=== PATIENT | female | born 1970 | race Caucasian/White ===

== ENCOUNTER 2019-05-25 16:57 | Inpatient (IN) | payer OTHER ==
[~2019-05-25] VITALS: Ht 165.1 cm; Wt 110.3 kg
[2019-05-25] MEDS ORDERED: SODIUM CHLORIDE 0.9% 3,400 ML IV ONE (18:43)
[2019-05-25] MEDS ORDERED: AZITHROMYCIN 500 MG/NS 250 ML IV ONE (18:45)
[2019-05-25] MEDS ORDERED: CefTRIAXone SODIUM 2 GM in DEXTROSE 5%-WATER 50 ML IV ONE (18:45)
[2019-05-25 18:49] LABS: EOSINOPHILS % (AUTO) 0.3 % (1.0-6.0); LYMPHOCYTES # (AUTO) 2.2 K/uL (1.0-4.8); LYMPHOCYTES % (AUTO) 10.8 % (22.0-44.0); MEAN CORPUSCULAR HEMOGLOBIN 32.6 pg (26.0-34.0); MEAN CORPUSCULAR HGB CONC 31.6 G/dL (31.0-37.0); MEAN CORPUSCULAR VOLUME 103 fL (80-100); MONOCYTES # (AUTO) 1.2 K/uL (0.1-1.0); MONOCYTES % (AUTO) 6.1 % (2.0-9.0); NEUTROPHILS # (AUTO) 16.3 K/uL (1.8-7.7); NEUTROPHILS % (AUTO) 81.8 % (40.0-70.0); PLATELET COUNT (AUTO) 182 K/uL (150-450); RED BLOOD CELL COUNT(AUTO) 3.69 MIL/uL (4.00-5.20); RED CELL DISTRIBUTION WIDTH 18.8 % (11.5-14.5)
[2019-05-25] MEDS ORDERED: NOREPINEPHRINE 4 MG/D5%-WATER 250 ML IV PRN (18:52)
[2019-05-25 19:03] LABS: INR 1.6 (0.9-1.1); PROTHROMBIN TIME 16.7 SEC (9.4-11.6)
[2019-05-25 19:05] LABS: ABG A-A DIFF O2 35.5 mmHg (10-20.0); ABG BASE EXCESS -14.4 mmol/L (-2.0-3.0); ABG CARBOXYHEMOGLOBIN 0.3 % (0.0-1.5); ABG HCO3 14.8 mmol/L (22.0-26.0); ABG METHEMOGLOBIN 0.2 % (0.0-1.5); ABG OXYGEN SATURATION 96.2 % (95.0-98.0); ABG OXYHEMOGLOBIN 95.7 % (94.0-100.0); ABG PCO2 21 mmHg (35-45); ABG PH 7.348 (7.35-7.450); ABG TOTAL HEMOGLOBIN 11.8 G/dL (12.0-18.0); PO2, ARTERIAL BG 89.1 mmHg (84.0-92.0); SITE, BLOOD GAS RT RADIAL; SOURCE, BLOOD GAS ARTERIAL; TEMPERATURE, FAHRENHEIT, BG 98.6 FAHREN (96.0-98.6)
[2019-05-25 19:06] LABS: O2 DEVICE,BLOOD GAS ROOM AIR (ROOM AIR)
[2019-05-25 19:09] LABS: AMMONIA 182 umol/L (11-32); TROPONIN I < 0.02 ng/mL (0.00-0.05)
[2019-05-25 19:19] LABS: LACTIC ACID 4.7 mmol/L (0.4-2.0)
[2019-05-25 19:24] LABS: ALANINE AMINOTRANSFERASE 51 U/L (12-78); ALBUMIN 2.4 g/dL (3.4-5.0); ALKALINE PHOSPHATASE 248 U/L (46-116); ANION GAP 18 mmol/L (8-16); ASPARTATE AMINOTRANSFERASE 180 U/L (15-37); BILIRUBIN,TOTAL 7.8 mg/dL (0.1-1.0); CARBON DIOXIDE 19 mmol/L (22-29); CHLORIDE 97 mmol/L (98-107); CREATINE KINASE, TOTAL ONLY 447 U/L (26-192); CREATININE 5.94 mg/dL (0.60-1.30); GLOMERULAR FILTR. RATE CALC 7 mL/min (>60); GLUCOSE,RANDOM 98 mg/dL (70-110); SODIUM SERUM 134 mmol/L (136-145); TOTAL PROTEIN, SERUM 7.5 g/dL (6.4-8.2); UREA NITROGEN, BLOOD 84 mg/dL (7-18)
[2019-05-25 19:25] LABS: APPEARANCE,URINE TURBID (CLEAR); GLUCOSE, URINE (UA) NEGATIVE (NEGATIVE); KETONES,URINE TRACE mg/dL (NEGATIVE); LEUKOCYTE ESTERASE ,URINE MODERATE (NEGATIVE); OCCULT BLOOD,URINE NEGATIVE (NEGATIVE); PROTEIN,URINE NEGATIVE (NEGATIVE); UROBILINOGEN,URINE 0.2 mg/dL (<=1.0)
[2019-05-25] MEDS ORDERED: PIPERACILLIN/TAZO 3.375 GM/D5W 50 ML IV ONE (19:30)
[2019-05-25] MEDS ORDERED: LACTULOSE 200 GM/300 ML RECTAL SOLUTION PR ONE (19:30)
[2019-05-25 19:33] LABS: POTASSIUM 6.7 mmol/L (3.5-5.1)
[2019-05-25 19:37] LABS: PLATELET MORPHOLOGY COMMENT NORMAL
[2019-05-25 19:39] LABS: AMPHET/METH SCREEN,URINE NEGATIVE (NEGATIVE); BARBITURATE SCREEN, URINE NEGATIVE (NEGATIVE); BENZODIAZEPINES SCREEN,URINE NEGATIVE (NEGATIVE); CANNABINOID SCREEN,URINE POSITIVE (NEGATIVE); COCAINE SCREEN,URINE NEGATIVE (NEGATIVE); METHADONE SCREEN, URINE NEGATIVE (NEGATIVE); OPIATE SCREEN,URINE NEGATIVE (NEGATIVE)
[2019-05-25 19:40] LABS: PHENCYCLIDINE SCREEN,URINE NEGATIVE (NEGATIVE)
[2019-05-25 19:44] LABS: BILIRUBIN,URINE PRELIM. POSITIVE (NEGATIVE)
[2019-05-25] MEDS ORDERED: SODIUM BICARBONATE [ADULT] 8.4% 50 MEQ/50 ML SYRINGE IVP ONE (19:45)
[2019-05-25] MEDS ORDERED: ALBUTEROL SULFATE 2.5 MG/0.5 ML NEB SOLUTION NEB ONE (19:45)
[2019-05-25] MEDS ORDERED: DEXTROSE 50%-WATER 25 GM/50 ML SYRINGE IVP ONE ×2 (19:45→23:15)
[2019-05-25] MEDS ORDERED: INSULIN REGULAR, HUMAN 100 UNITS/ML IVP ONE ×2 (19:45→23:15)
[2019-05-25] MEDS ORDERED: CALCIUM GLUCONATE 100 MG/ML 10 ML IVP ONE (19:45)
[2019-05-25] MEDS ORDERED: SODIUM POLYSTYRENE SULFONATE 15 GM/60 ML SUSPENSION BOTTLE PO ONE (19:45)
[2019-05-25] MEDS ORDERED: FLUT12AE3 IH (19:52)
[2019-05-25] MEDS ORDERED: LEVO25TA9 PO (19:52)
[2019-05-25] MEDS ORDERED: ALBU8HFA IH (19:52)
[2019-05-25] MEDS ORDERED: SERT100T12 PO (19:52)
[2019-05-25] MEDS ORDERED: FURO40 PO (19:52)
[2019-05-25] MEDS ORDERED: DULO20CA30 PO (19:52)
[2019-05-25] MEDS ORDERED: MONT10TA21 PO (19:52)
[2019-05-25] MEDS ORDERED: SPIR50 PO (19:52)
[2019-05-25] MEDS ORDERED: DEXL30CA3 PO (19:52)
[2019-05-25] MEDS ORDERED: RIFAX550 PO (19:52)
[2019-05-25] MEDS ORDERED: LACT30L PO (19:52)
[2019-05-25 20:00] LABS: BACTERIA,URINE Many /HPF (None Seen); NITRATE,URINE POSITIVE (NEGATIVE); RBC,URINE 0-2 /HPF (0-2); SQUAMOUS EPITHELIAL CELL,UR Moderate /LPF (None Seen)
[2019-05-25] MEDS ORDERED: RAPID SEQUENCE KIT [RSI] 1 EACH KIT ONE (20:10)
[2019-05-25] MEDS ORDERED: SUCCINYLCHOLINE CHLORIDE 20 MG/ML 10 ML VIAL ONE (20:10)
[2019-05-25] MEDS ORDERED: PROPOFOL 1000 MG/ISO-OSM 100 ML IV PRN (20:31)
[2019-05-25] MEDS ORDERED: FentaNYL CITRATE PF 500 MCG in DEXTROSE 5%-WATER 90 ML IV PRN (20:31)
[2019-05-25] MEDS ORDERED: VECURONIUM BROMIDE 10 MG/VIAL IVP ONE (20:45)
[2019-05-25] MEDS ORDERED: ETOMIDATE 2 MG/ML 10 ML VIAL IVP ONE (20:45)
[2019-05-25] MEDS ORDERED: LACTULOSE 20 GM/30 ML SOLUTION UDCUP NG ONE (20:45)
[2019-05-25] MEDS ORDERED: PANTOPRAZOLE SODIUM 80 MG in SODIUM CHLORIDE 0.9% 100 ML IV SCH (21:15)
[2019-05-25] MEDS ORDERED: PANTOPRAZOLE SODIUM 40 MG/VIAL IVP ONE (21:15)
[2019-05-25] MEDS ORDERED: OCTREOTIDE ACETATE 500 MCG in DEXTROSE 5%-WATER 97.5 ML IV SCH (21:30)
[2019-05-25] MEDS ORDERED: OCTREOTIDE ACETATE 100 MCG/ML VIAL IVP ONE (21:30)
[2019-05-25 21:34] LABS: ABG A-A DIFF O2 109.7 mmHg (10-20.0); ABG BASE EXCESS -13.4 mmol/L (-2.0-3.0); ABG CARBOXYHEMOGLOBIN 0.2 % (0.0-1.5); ABG HCO3 14.4 mmol/L (22.0-26.0); ABG METHEMOGLOBIN 0.4 % (0.0-1.5); ABG OXYGEN CONTENT 17.2 mL/dL (15.0-23.0); ABG OXYGEN SATURATION 97.9 % (95.0-98.0); ABG OXYHEMOGLOBIN 97.3 % (94.0-100.0); ABG PCO2 43 mmHg (35-45); ABG TOTAL HEMOGLOBIN 12.4 G/dL (12.0-18.0); PO2, ARTERIAL BG 128.1 mmHg (84.0-92.0); SOURCE, BLOOD GAS ARTERIAL
[2019-05-25 21:36] LABS: ABG PH 7.167 (7.35-7.450); O2 DEVICE,BLOOD GAS VENTILATOR (ROOM AIR); PEEP,BG 5 cm H2O; SITE, BLOOD GAS RT RADIAL; VT, ABG 500 ml
[2019-05-25] MEDS ORDERED: 0.9% SODIUM CHLORIDE 5 ML NEB SOLUTION NEB ONE (21:39)
[2019-05-25 22:19] LABS: SALICYLATE < 2.8 mg/dL (2.8-20.0)
[2019-05-25 22:26] LABS: CALCIUM, TOTAL 9.3 mg/dL (8.8-10.5); CARBON DIOXIDE 18 mmol/L (22-29); CHLORIDE 102 mmol/L (98-107); CREATININE 5.69 mg/dL (0.60-1.30); GLUCOSE,RANDOM 138 mg/dL (70-110); SODIUM SERUM 138 mmol/L (136-145); UREA NITROGEN, BLOOD 83 mg/dL (7-18)
[2019-05-25 22:32] LABS: ANION GAP 18 mmol/L (8-16); GLOMERULAR FILTR. RATE CALC 8 mL/min (>60); PHOSPHORUS 7.5 mg/dL (2.5-4.9)
[2019-05-25 22:48] LABS: ACETAMINOPHEN < 2 mcg/mL (10-30)
[2019-05-25] MEDS ORDERED: NOREPINEPHRINE 4 MG/D5%-WATER 250 ML IV STA (22:51)
[2019-05-25] MEDS ORDERED: SODIUM CHLORIDE 0.9% 1,000 ML IV ONE (23:15)
[2019-05-26] MEDS ORDERED: 0.9% SODIUM CHLORIDE 10 ML SYRINGE IVP PRN (00:15)
[2019-05-26] MEDS ORDERED: ONDANSETRON HCL 4 MG/2 ML VIAL IVP PRN (00:15)
[2019-05-26] MEDS ORDERED: ACETAMINOPHEN 325 MG TABLET PO PRN (00:15)
[2019-05-26 01:08] LABS: GLUCOSE,POINT OF CARE 124 MG/DL (70-110)
[2019-05-26 02:05] LABS: HEMATOCRIT 36.8 % (36-46); HEMOGLOBIN 11.3 g/dL (12.0-16.0)
[2019-05-26] MEDS: PHENYLEPHRINE 200 MG/D5%-WATER 250 ML IV PRN (03:46)
[2019-05-26] MEDS ORDERED: PANTOPRAZOLE SODIUM 80 MG in SODIUM CHLORIDE 0.9% 100 ML IV SCH (06:30)
[2019-05-26] MEDS ORDERED: OCTREOTIDE ACETATE 500 MCG in DEXTROSE 5%-WATER 97.5 ML IV SCH (06:30)
[2019-05-26] MEDS ORDERED: SODIUM CHLORIDE 0.9% 1,000 ML IV ONE (06:45)
[2019-05-26 07:00] LABS: HEMATOCRIT 35.3 % (36-46); HEMOGLOBIN 10.8 g/dL (12.0-16.0); MEAN CORPUSCULAR HEMOGLOBIN 32.9 pg (26.0-34.0); MEAN CORPUSCULAR HGB CONC 30.7 G/dL (31.0-37.0); MEAN CORPUSCULAR VOLUME 107 fL (80-100); PLATELET COUNT (AUTO) 224 K/uL (150-450); RED BLOOD CELL COUNT(AUTO) 3.29 MIL/uL (4.00-5.20); RED CELL DISTRIBUTION WIDTH 19.3 % (11.5-14.5)
[2019-05-26 07:13] LABS: ALBUMIN 1.9 g/dL (3.4-5.0); BILIRUBIN,TOTAL 5.7 mg/dL (0.1-1.0); CALCIUM, TOTAL 9.2 mg/dL (8.8-10.5); CREATININE 5.62 mg/dL (0.60-1.30); TOTAL PROTEIN, SERUM 6.2 g/dL (6.4-8.2)
[2019-05-26 07:14] LABS: POTASSIUM 6.3 mmol/L (3.5-5.1)
[2019-05-26 07:16] LABS: ABG A-A DIFF O2 98.2 mmHg (10-20.0); ABG BASE EXCESS -18.7 mmol/L (-2.0-3.0); ABG CARBOXYHEMOGLOBIN 0.1 % (0.0-1.5); ABG HCO3 11.1 mmol/L (22.0-26.0); ABG METHEMOGLOBIN 0.4 % (0.0-1.5); ABG OXYGEN CONTENT 15.7 mL/dL (15.0-23.0); ABG OXYGEN SATURATION 98.2 % (95.0-98.0); ABG OXYHEMOGLOBIN 97.7 % (94.0-100.0); ABG PCO2 38 mmHg (35-45); ABG TOTAL HEMOGLOBIN 11.2 G/dL (12.0-18.0); PO2, ARTERIAL BG 143.2 mmHg (84.0-92.0); SOURCE, BLOOD GAS ARTERIAL; TEMPERATURE, FAHRENHEIT, BG 98.6 FAHREN (96.0-98.6)
[2019-05-26 07:17] LABS: ABG PH 7.085 (7.35-7.450); O2 DEVICE,BLOOD GAS VENTILATOR (ROOM AIR); SITE, BLOOD GAS RT RADIAL; VT, ABG 500 ml
[2019-05-26 07:18] LABS: PEEP,BG 5 cm H2O
[2019-05-26 07:33] LABS: BAND NEUTROPHILS % (MANUAL) 29 % (0-5); LYMPHOCYTES % (MANUAL) 17 % (22-44); MONOCYTES % (MANUAL) 3 % (2-9); SEGMENTED NEUTROPHILS % 51 % (40-70)
[2019-05-26] MEDS ORDERED: SODIUM CHL IV ONE (07:45)
[2019-05-26] MEDS ORDERED: SODIUM BICARBONATE [ADULT] 8.4% 50 MEQ/50 ML SYRINGE IVP ONE (07:45)
[2019-05-26] MEDS ORDERED: DEXTROSE IV ONE (07:45)
[2019-05-26] MEDS ORDERED: SODIUM BICARBONATE IV ONE (07:45)
[2019-05-26] MEDS: VASOPRESSIN 40 UNITS in DEXTROSE 5%-WATER 98 ML IV PRN ×2 (09:09→19:51)
[2019-05-26 09:50] LABS: ABG A-A DIFF O2 113.3 mmHg (10-20.0); ABG BASE EXCESS -9.8 mmol/L (-2.0-3.0); ABG CARBOXYHEMOGLOBIN 0.3 % (0.0-1.5); ABG HCO3 17.3 mmol/L (22.0-26.0); ABG METHEMOGLOBIN 0.3 % (0.0-1.5); ABG OXYGEN CONTENT 15.1 mL/dL (15.0-23.0); ABG OXYGEN SATURATION 98.5 % (95.0-98.0); ABG OXYHEMOGLOBIN 97.9 % (94.0-100.0); ABG PCO2 34 mmHg (35-45); ABG PH 7.301 (7.35-7.450); ABG TOTAL HEMOGLOBIN 10.8 G/dL (12.0-18.0); PO2, ARTERIAL BG 132.3 mmHg (84.0-92.0); SOURCE, BLOOD GAS ARTERIAL; TEMPERATURE, FAHRENHEIT, BG 98.6 FAHREN (96.0-98.6)
[2019-05-26 09:54] LABS: O2 DEVICE,BLOOD GAS VENTILATOR (ROOM AIR); PEEP,BG 5 cm H2O; SITE, BLOOD GAS ART LINE; VT, ABG 500 ml
[2019-05-26 11:14] LABS: HEMATOCRIT 28.6 % (36-46); MEAN CORPUSCULAR HEMOGLOBIN 33.5 pg (26.0-34.0); MEAN CORPUSCULAR HGB CONC 31.4 G/dL (31.0-37.0); MEAN CORPUSCULAR VOLUME 107 fL (80-100); PLATELET COUNT (AUTO) 209 K/uL (150-450); RED BLOOD CELL COUNT(AUTO) 2.69 MIL/uL (4.00-5.20); RED CELL DISTRIBUTION WIDTH 18.8 % (11.5-14.5)
[2019-05-26 11:24] LABS: CALCIUM, TOTAL 8.1 mg/dL (8.8-10.5); CREATININE 5.3 mg/dL (0.60-1.30); POTASSIUM 5.7 mmol/L (3.5-5.1)
[2019-05-26 11:30] LABS: ALBUMIN 1.5 g/dL (3.4-5.0); BILIRUBIN,TOTAL 4.9 mg/dL (0.1-1.0)
[2019-05-26 11:41] LABS: BAND NEUTROPHILS % (MANUAL) 24 % (0-5); LYMPHOCYTES % (MANUAL) 27 % (22-44); MONOCYTES % (MANUAL) 2 % (2-9); SEGMENTED NEUTROPHILS % 47 % (40-70)
[2019-05-26 11:50] VITALS: BP 103/33
[2019-05-26 12:00] VITALS: BP_SYST 100; BP_SYST 97; BP_DIAS 30; BP_DIAS 32
[2019-05-26 12:15] VITALS: BP 103/37
[2019-05-26] MEDS ORDERED: FentaNYL CITRATE-PF 100 MCG/2 ML VIAL ONE (12:31)
[2019-05-26 12:45] LABS: INR 1.7 (0.9-1.1); PROTHROMBIN TIME 17.1 SEC (9.4-11.6)
[2019-05-26] MEDS ORDERED: NXSTAGE RFP K0 IRRIG PRN (13:15)
[2019-05-26] MEDS ORDERED: SODIUM BICARBONATE IRRIG PRN (13:15)
[2019-05-26] MEDS ORDERED: [UNRECOGNIZED DRUG - OTHER] IRRIG PRN (13:15)
[2019-05-26] MEDS ORDERED: POTASSIUM CHLORIDE IRRIG PRN (13:15)
[2019-05-26] MEDS ORDERED: NOREPINEPHRINE 4 MG/D5%-WATER 250 ML IV ONE (13:33)
[2019-05-26 14:00] VITALS: BP 105/31
[2019-05-26] MEDS: PANTOPRAZOLE SODIUM 80 MG in SODIUM CHLORIDE 0.9% 100 ML IV SCH (15:08)
[2019-05-26] MEDS: OCTREOTIDE ACETATE 500 MCG in DEXTROSE 5%-WATER 97.5 ML IV SCH (15:09)
[2019-05-26 16:00] VITALS: BP 111/34
[2019-05-26] MEDS: FentaNYL CITRATE-PF 100 MCG/2 ML VIAL IVP SCH ×3 (16:00→20:30)
[2019-05-26] MEDS ORDERED: PROPOFOL 1000 MG/ISO-OSM 100 ML IV ONE (16:55)
[2019-05-26] MEDS ORDERED: *CLINICAL-LEVOFLOXACIN IVPB DOSING CLINICAL ONE (17:30)
[2019-05-26] MEDS: NOREPINEPHRINE 4 MG/D5%-WATER 250 ML IV PRN ×2 (17:33→20:45)
[2019-05-26] MEDS ORDERED: SODIUM CHLORIDE 0.9% 250 ML IV ONE (17:59)
[2019-05-26] MEDS ORDERED: LEVOFLOXACIN 750 MG/D5% WATER 150 ML IV ONE (18:00)
[2019-05-26] MEDS ORDERED: PIPERACILLIN SODIUM/TAZOBACTAM 4.5 GM in DEXTROSE 5%-WATER 100 ML IV SCH (19:00)
[2019-05-26 20:00] VITALS: BP 105/27
[2019-05-26] MEDS ORDERED: VANCOMYCIN HCL 1 GM/D5% WATER 200 ML IV PRN (20:30)
[2019-05-26] MEDS: VANCOMYCIN HCL 1 GM/D5% WATER 200 ML IV SCH ×2 (20:59→23:04)
[2019-05-27] VITALS: BP 95/26
[2019-05-27] MEDS: FentaNYL CITRATE-PF 100 MCG/2 ML VIAL IVP SCH
[2019-05-27] MEDS: OCTREOTIDE ACETATE 500 MCG in DEXTROSE 5%-WATER 97.5 ML IV SCH ×2 (00:31→12:40)
[2019-05-27] MEDS: PANTOPRAZOLE SODIUM 80 MG in SODIUM CHLORIDE 0.9% 100 ML IV SCH ×3 (00:31→23:06)
[2019-05-27 00:40] LABS: CALCIUM, TOTAL 7.6 mg/dL (8.8-10.5); CREATININE 4.58 mg/dL (0.60-1.30); POTASSIUM 4.5 mmol/L (3.5-5.1)
[2019-05-27] MEDS: NOREPINEPHRINE 4 MG/D5%-WATER 250 ML IV PRN ×5 (00:51→19:11)
[2019-05-27] MEDS ORDERED: SODIUM CHLORIDE 0.9% 500 ML IV ONE ×3 (01:29→16:45)
[2019-05-27] MEDS ORDERED: SODIUM CHLORIDE 0.9% 250 ML IV ONE ×2 (01:29→08:01)
[2019-05-27 01:39] LABS: APPEARANCE,URINE TURBID (CLEAR); GLUCOSE, URINE (UA) NEGATIVE (NEGATIVE); KETONES,URINE NEGATIVE (NEGATIVE); LEUKOCYTE ESTERASE ,URINE MODERATE (NEGATIVE); NITRATE,URINE NEGATIVE (NEGATIVE); OCCULT BLOOD,URINE LARGE (NEGATIVE); PROTEIN,URINE TRACE (NEGATIVE)
[2019-05-27 01:42] LABS: BILIRUBIN,URINE PRELIM. POSITIVE (NEGATIVE); CREATININE,URINE RANDOM 101.1 mg/dL (30.0-125.0); SODIUM,URINE RANDOM 44 mmol/l (20-110); UREA NITROGEN,URINE RANDOM 201 mg/dL (350-1000)
[2019-05-27] MEDS ORDERED: SODIUM BICARBONATE 150 MEQ in DEXTROSE 5%-WATER 1,000 ML IV ONE (02:00)
[2019-05-27 02:01] LABS: BACTERIA,URINE Moderate /HPF (None Seen); RBC,URINE 26-50 /HPF (0-2); SQUAMOUS EPITHELIAL CELL,UR Moderate /LPF (None Seen)
[2019-05-27] MEDS: PROPOFOL 1000 MG/ISO-OSM 100 ML IV PRN ×3 (02:30→20:18)
[2019-05-27 04:00] VITALS: BP 101/28
[2019-05-27] MEDS ORDERED: *CLINICAL-RX DOSING [ENTER DRUG IN COMMENTS] CLINICAL ONE (04:00)
[2019-05-27 06:01] LABS: % IRON SATURATION 11.4 % (22-44)
[2019-05-27 06:07] LABS: ALBUMIN 1.5 g/dL (3.4-5.0); BILIRUBIN,TOTAL 5.3 mg/dL (0.1-1.0); CALCIUM, TOTAL 7.9 mg/dL (8.8-10.5); CREATININE 4.19 mg/dL (0.60-1.30); MAGNESIUM 1.6 mg/dL (1.80-2.40); PHOSPHORUS 5.7 mg/dL (2.5-4.9); POTASSIUM 4.4 mmol/L (3.5-5.1); THYROID STIMULATING HORMONE 0.52 uIU/mL (0.36-3.74); TOTAL PROTEIN, SERUM 4.8 g/dL (6.4-8.2); VANCOMYCIN,RANDOM 33.7 mcg/mL (25.0-50.0)
[2019-05-27 07:25] LABS: BASOPHILS % (AUTO) 0.4 % (0.0-2.0); EOSINOPHILS % (AUTO) 2.1 % (1.0-6.0); LYMPHOCYTES # (AUTO) 2.4 K/uL (1.0-4.8); LYMPHOCYTES % (AUTO) 10.5 % (22.0-44.0); MEAN CORPUSCULAR HEMOGLOBIN 32.9 pg (26.0-34.0); MEAN CORPUSCULAR HGB CONC 31.9 G/dL (31.0-37.0); MEAN CORPUSCULAR VOLUME 103 fL (80-100); MONOCYTES # (AUTO) 0.7 K/uL (0.1-1.0); MONOCYTES % (AUTO) 3.3 % (2.0-9.0); NEUTROPHILS # (AUTO) 19.1 K/uL (1.8-7.7); NEUTROPHILS % (AUTO) 83.7 % (40.0-70.0); RED BLOOD CELL COUNT(AUTO) 2.04 MIL/uL (4.00-5.20); RED CELL DISTRIBUTION WIDTH 18.4 % (11.5-14.5)
[2019-05-27 07:45] LABS: HEMOGLOBIN 6.7 g/dL (12.0-16.0)
[2019-05-27 08:00] VITALS: BP 102/29
[2019-05-27] MEDS ORDERED: MAGNESIUM SULFATE 2 GM in DEXTROSE 5%-WATER 50 ML IV ONE (08:45)
[2019-05-27] MEDS ORDERED: MEROPENEM 2 GM in SODIUM CHLORIDE 0.9% 100 ML IV SCH (09:00)
[2019-05-27 09:36] LABS: ABG A-A DIFF O2 142.3 mmHg (10-20.0); ABG BASE EXCESS -9.5 mmol/L (-2.0-3.0); ABG CARBOXYHEMOGLOBIN 0.3 % (0.0-1.5); ABG HCO3 17.5 mmol/L (22.0-26.0); ABG METHEMOGLOBIN 0.2 % (0.0-1.5); ABG OXYGEN CONTENT 10.6 mL/dL (15.0-23.0); ABG OXYGEN SATURATION 98.1 % (95.0-98.0); ABG OXYHEMOGLOBIN 97.6 % (94.0-100.0); ABG PCO2 26 mmHg (35-45); ABG PH 7.399 (7.35-7.450); PO2, ARTERIAL BG 114.6 mmHg (84.0-92.0); SOURCE, BLOOD GAS ARTERIAL; TEMPERATURE, FAHRENHEIT, BG 96.7 FAHREN (96.0-98.6)
[2019-05-27 09:38] LABS: ABG TOTAL HEMOGLOBIN 7.5 G/dL (12.0-18.0); O2 DEVICE,BLOOD GAS VENTILATOR (ROOM AIR); PEEP,BG 5 cm H2O; SITE, BLOOD GAS ARTERIAL LINE; VT, ABG 500 ml
[2019-05-27 10:16] LABS: PLATELET COUNT (AUTO) 88 K/uL (150-450)
[2019-05-27] MEDS ORDERED: 0.9% SODIUM CHLORIDE 15 ML NEB SOLUTION NEB ONE (10:54)
[2019-05-27 12:00] VITALS: BP 107/30
[2019-05-27] MEDS: PHENYLEPHRINE 200 MG/D5%-WATER 250 ML IV PRN (14:16)
[2019-05-27] MEDS: VASOPRESSIN 40 UNITS in DEXTROSE 5%-WATER 98 ML IV PRN (15:11)
[2019-05-27 16:00] VITALS: BP 58/28
[2019-05-27 16:14] LABS: PROTHROMBIN TIME 20.5 SEC (9.4-11.6)
[2019-05-27] MEDS ORDERED: DOPamine HCL 400 MG/D5%-WATER 250 ML IV ONE (16:17)
[2019-05-27] MEDS: DOPamine HCL 400 MG/D5%-WATER 250 ML IV PRN ×4 (16:42→22:59)
[2019-05-27] MEDS: EPINEPHrine 2 MG in DEXTROSE 5%-WATER 248 ML IV PRN (19:09)
[2019-05-27 20:00] VITALS: BP_SYST 101; BP_SYST 58; BP_DIAS 28; BP_DIAS 32
[2019-05-27 20:08] LABS: CALCIUM, TOTAL 7.8 mg/dL (8.8-10.5); CREATININE 3.53 mg/dL (0.60-1.30); POTASSIUM 4.1 mmol/L (3.5-5.1)
[2019-05-27 20:12] LABS: MAGNESIUM 1.7 mg/dL (1.80-2.40); PHOSPHORUS 5.1 mg/dL (2.5-4.9)
[2019-05-27 20:13] LABS: MEAN CORPUSCULAR HEMOGLOBIN 32.3 pg (26.0-34.0); MEAN CORPUSCULAR HGB CONC 32.2 G/dL (31.0-37.0); MEAN CORPUSCULAR VOLUME 100 fL (80-100); RED CELL DISTRIBUTION WIDTH 17.8 % (11.5-14.5)
[2019-05-27] MEDS: MEROPENEM 1 GM in SODIUM CHLORIDE 0.9% 100 ML IV SCH (20:27)
[2019-05-27 20:33] LABS: HEMATOCRIT 20.1 % (36-46); HEMOGLOBIN 6.5 g/dL (12.0-16.0)
[2019-05-27 21:01] LABS: PLATELET COUNT (AUTO) 45 K/uL (150-450)
[2019-05-27 21:02] LABS: BAND NEUTROPHILS % (MANUAL) 30 % (0-5); LYMPHOCYTES % (MANUAL) 13 % (22-44); MONOCYTES % (MANUAL) 6 % (2-9); SEGMENTED NEUTROPHILS % 51 % (40-70)
[2019-05-27] MEDS: NOREPINEPHRINE BITARTRATE 8 MG in DEXTROSE 5%-WATER 242 ML IV PRN (23:20)
[2019-05-28] VITALS (26 sets, daily range): BP systolic 101–128; BP diastolic 31–37
[2019-05-28] MEDS: OCTREOTIDE ACETATE 500 MCG in DEXTROSE 5%-WATER 97.5 ML IV SCH ×3 (00:44→20:02)
[2019-05-28] MEDS: PHENYLEPHRINE 200 MG/D5%-WATER 250 ML IV PRN ×2 (01:45→13:38)
[2019-05-28] MEDS: PROPOFOL 1000 MG/ISO-OSM 100 ML IV PRN ×4 (02:27→18:27)
[2019-05-28 02:55] LABS: GLUCOSE,POINT OF CARE 128 MG/DL (70-110)
[2019-05-28] MEDS: DOPamine HCL 800 MG/D5%-WATER 250 ML IV PRN ×2 (02:55→15:28)
[2019-05-28] MEDS: FentaNYL CITRATE-PF 100 MCG/2 ML VIAL IVP SCH ×7 (04:00→23:43)
[2019-05-28] MEDS: NOREPINEPHRINE BITARTRATE 8 MG in DEXTROSE 5%-WATER 242 ML IV PRN ×3 (06:07→19:44)
[2019-05-28] MEDS: VASOPRESSIN 40 UNITS in DEXTROSE 5%-WATER 98 ML IV PRN (07:47)
[2019-05-28 08:51] LABS: HEMATOCRIT 27.5 % (36-46); HEMOGLOBIN 9.4 g/dL (12.0-16.0); MEAN CORPUSCULAR HEMOGLOBIN 32.8 pg (26.0-34.0); MEAN CORPUSCULAR HGB CONC 34.2 G/dL (31.0-37.0); MEAN CORPUSCULAR VOLUME 96 fL (80-100); PLATELET COUNT (AUTO) 45 K/uL (150-450); RED BLOOD CELL COUNT(AUTO) 2.86 MIL/uL (4.00-5.20); RED CELL DISTRIBUTION WIDTH 16.6 % (11.5-14.5)
[2019-05-28 08:55] LABS: INR 1.9 (0.9-1.1); PROTHROMBIN TIME 19.3 SEC (9.4-11.6)
[2019-05-28 08:57] LABS: ABG A-A DIFF O2 137.8 mmHg (10-20.0); ABG BASE EXCESS -3.8 mmol/L (-2.0-3.0); ABG CARBOXYHEMOGLOBIN 0.1 % (0.0-1.5); ABG HCO3 21.9 mmol/L (22.0-26.0); ABG METHEMOGLOBIN 0.3 % (0.0-1.5); ABG OXYGEN CONTENT 14.1 mL/dL (15.0-23.0); ABG OXYGEN SATURATION 98.1 % (95.0-98.0); ABG OXYHEMOGLOBIN 97.7 % (94.0-100.0); ABG PCO2 30 mmHg (35-45); ABG PH 7.443 (7.35-7.450); ABG TOTAL HEMOGLOBIN 10.1 G/dL (12.0-18.0); PO2, ARTERIAL BG 112.6 mmHg (84.0-92.0); SOURCE, BLOOD GAS ARTERIAL; TEMPERATURE, FAHRENHEIT, BG 98.6 FAHREN (96.0-98.6)
[2019-05-28 08:58] LABS: O2 DEVICE,BLOOD GAS VENTILATOR (ROOM AIR); SITE, BLOOD GAS ARTERIAL LINE
[2019-05-28 08:59] LABS: PEEP,BG 5 cm H2O; VT, ABG 500 ml
[2019-05-28] MEDS: PANTOPRAZOLE SODIUM 80 MG in SODIUM CHLORIDE 0.9% 100 ML IV SCH ×2 (09:01→18:26)
[2019-05-28] MEDS: MEROPENEM 1 GM in SODIUM CHLORIDE 0.9% 100 ML IV SCH (09:01)
[2019-05-28] MEDS: EPOETIN ALFA 10,000 UNITS/ML VIAL SQ SCH (09:02)
[2019-05-28 09:03] LABS: ALBUMIN 1.7 g/dL (3.4-5.0); BILIRUBIN,TOTAL 6.5 mg/dL (0.1-1.0); CALCIUM, TOTAL 7.6 mg/dL (8.8-10.5); CREATININE 3.76 mg/dL (0.60-1.30); POTASSIUM 4.2 mmol/L (3.5-5.1); VANCOMYCIN,RANDOM 20.1 mcg/mL (25.0-50.0)
[2019-05-28 10:00] LABS: BAND NEUTROPHILS % (MANUAL) 21 % (0-5); LYMPHOCYTES % (MANUAL) 22 % (22-44); MONOCYTES % (MANUAL) 2 % (2-9); SEGMENTED NEUTROPHILS % 55 % (40-70)
[2019-05-28] MEDS ORDERED: SODIUM CHLORIDE 0.9% 2,000 ML IV ONE (10:44)
[2019-05-28] MEDS ORDERED: SODIUM CHLORIDE 0.9% 100 ML ONE (13:52)
[2019-05-28] MEDS ORDERED: VANCOMYCIN HCL 1 GM/D5% WATER 200 ML IV ONE (14:00)
[2019-05-28 14:53] LABS: HEMATOCRIT 26.1 % (36-46); HEMOGLOBIN 8.8 g/dL (12.0-16.0)
[2019-05-28 18:19] LABS: CALCIUM, TOTAL 7.6 mg/dL (8.8-10.5); CREATININE 3.12 mg/dL (0.60-1.30)
[2019-05-28 18:22] LABS: MAGNESIUM 1.4 mg/dL (1.80-2.40)
[2019-05-28] MEDS: LEVOFLOXACIN 500 MG/D5% WATER 100 ML IV SCH (18:26)
[2019-05-28] MEDS: MEROPENEM 2 GM in SODIUM CHLORIDE 0.9% 100 ML IV SCH (20:04)
[2019-05-28] MEDS ORDERED: MAGNESIUM SULFATE 2 GM/WATER 50 ML IV ONE (21:00)
[2019-05-28] MEDS: POTASSIUM CHLORIDE 15 MEQ in NXSTAGE RFP-402 K0/CA3 5,000 ML IRRIG PRN ×2 (21:15→21:16)
[2019-05-28] MEDS ORDERED: SODIUM CHLORIDE 0.9% 250 ML IV ONE (23:50)
[2019-05-29] VITALS: BP 114/31
[2019-05-29] MEDS: VASOPRESSIN 40 UNITS in DEXTROSE 5%-WATER 98 ML IV PRN (00:18)
[2019-05-29] MEDS: PHENYLEPHRINE 200 MG/D5%-WATER 250 ML IV PRN (00:19)
[2019-05-29] MEDS: NOREPINEPHRINE BITARTRATE 8 MG in DEXTROSE 5%-WATER 242 ML IV PRN (02:37)
[2019-05-29] MEDS: PANTOPRAZOLE SODIUM 80 MG in SODIUM CHLORIDE 0.9% 100 ML IV SCH ×2 (03:38→13:44)
[2019-05-29] MEDS: PROPOFOL 1000 MG/ISO-OSM 100 ML IV PRN ×4 (03:38→22:46)
[2019-05-29 04:00] VITALS: BP 101/30
[2019-05-29] MEDS: FentaNYL CITRATE-PF 100 MCG/2 ML VIAL IVP SCH ×3 (04:00→12:00)
[2019-05-29] MEDS: DOPamine HCL 800 MG/D5%-WATER 250 ML IV PRN ×2 (04:34→16:29)
[2019-05-29 05:34] LABS: BASOPHILS % (AUTO) 0.8 % (0.0-2.0); EOSINOPHILS % (AUTO) 1.8 % (1.0-6.0); HEMATOCRIT 24.3 % (36-46); HEMOGLOBIN 8.1 g/dL (12.0-16.0); LYMPHOCYTES # (AUTO) 2.1 K/uL (1.0-4.8); MEAN CORPUSCULAR HGB CONC 33.5 G/dL (31.0-37.0); MEAN CORPUSCULAR VOLUME 95 fL (80-100); MONOCYTES # (AUTO) 0.9 K/uL (0.1-1.0); MONOCYTES % (AUTO) 5.3 % (2.0-9.0); NEUTROPHILS # (AUTO) 14.1 K/uL (1.8-7.7); NEUTROPHILS % (AUTO) 80.1 % (40.0-70.0); PLATELET COUNT (AUTO) 40 K/uL (150-450); RED BLOOD CELL COUNT(AUTO) 2.54 MIL/uL (4.00-5.20); RED CELL DISTRIBUTION WIDTH 17.1 % (11.5-14.5)
[2019-05-29 05:39] LABS: INR 1.8 (0.9-1.1); PROTHROMBIN TIME 18.7 SEC (9.4-11.6)
[2019-05-29] MEDS ORDERED: SODIUM CHLORIDE 0.9% 500 ML IV ONE ×2 (05:54→15:07)
[2019-05-29 05:55] LABS: ALBUMIN 1.7 g/dL (3.4-5.0); BILIRUBIN,TOTAL 6.2 mg/dL (0.1-1.0); CALCIUM, TOTAL 8.2 mg/dL (8.8-10.5); CREATININE 2.93 mg/dL (0.60-1.30); PHOSPHORUS 3.3 mg/dL (2.5-4.9); POTASSIUM 3.9 mmol/L (3.5-5.1); TOTAL PROTEIN, SERUM 4.8 g/dL (6.4-8.2); VANCOMYCIN,RANDOM 24.2 mcg/mL (25.0-50.0)
[2019-05-29] MEDS: MEROPENEM 2 GM in SODIUM CHLORIDE 0.9% 100 ML IV SCH ×2 (06:06→18:13)
[2019-05-29] MEDS: OCTREOTIDE ACETATE 500 MCG in DEXTROSE 5%-WATER 97.5 ML IV SCH (06:49)
[2019-05-29 08:00] VITALS: BP 117/32
[2019-05-29] MEDS ORDERED: BUMETANIDE 0.25 MG/ML 4 ML VIAL IVP ONE (08:15)
[2019-05-29] MEDS ORDERED: OCTREOTIDE ACETATE 500 MCG in SODIUM CHLORIDE 0.9% 97.5 ML IV SCH (08:28)
[2019-05-29] MEDS ORDERED: PHENYLEPHRINE HCL 200 MG in SODIUM CHLORIDE 0.9% 230 ML IV PRN (08:30)
[2019-05-29] MEDS ORDERED: SODIUM CHLORIDE 0.9% 250 ML IV ONE (09:13)
[2019-05-29 11:52] LABS: ABG A-A DIFF O2 152.2 mmHg (10-20.0); ABG BASE EXCESS -2.1 mmol/L (-2.0-3.0); ABG CARBOXYHEMOGLOBIN 0.1 % (0.0-1.5); ABG HCO3 23.2 mmol/L (22.0-26.0); ABG METHEMOGLOBIN 0.2 % (0.0-1.5); ABG OXYGEN CONTENT 14.3 mL/dL (15.0-23.0); ABG OXYHEMOGLOBIN 97.7 % (94.0-100.0); ABG PCO2 31 mmHg (35-45); ABG PH 7.466 (7.35-7.450); ABG TOTAL HEMOGLOBIN 10.3 G/dL (12.0-18.0); O2 DEVICE,BLOOD GAS VENTILATOR (ROOM AIR); PO2, ARTERIAL BG 98.7 mmHg (84.0-92.0); SITE, BLOOD GAS ARTERIAL LINE; SOURCE, BLOOD GAS ARTERIAL; TEMPERATURE, FAHRENHEIT, BG 96.7 FAHREN (96.0-98.6); VT, ABG 500 ml
[2019-05-29 12:00] VITALS: BP 112/33
[2019-05-29 12:11] LABS: LEGIONELLA PNEUMO AG URINE Negative (Negative); ORGANISM ID Not indicated.; S PNEUMO SOURCE Urine; STREP PNEUMONIAE AG URINE Negative (Negative); STREP.PNEUMO BODY FLUID CULT. Not Indicated
[2019-05-29] MEDS: POTASSIUM CHLORIDE 15 MEQ in NXSTAGE RFP-402 K0/CA3 5,000 ML IRRIG PRN ×2 (12:17→16:29)
[2019-05-29] MEDS: VASOPRESSIN 40 UNITS in SODIUM CHLORIDE 0.9% 98 ML IV PRN (12:18)
[2019-05-29] MEDS: PHENYLEPHRINE HCL 200 MG in SODIUM CHLORIDE 0.9% 230 ML IV PRN ×2 (12:19→23:46)
[2019-05-29] MEDS: SODIUM CHLORIDE 0.9% IV PRN ×2 (12:20→18:14)
[2019-05-29] MEDS: NOREPINEPHRINE BITARTRATE IV PRN ×2 (12:20→18:14)
[2019-05-29 16:00] VITALS: BP 108/30
[2019-05-29 16:08] LABS: CALCIUM, TOTAL 8.1 mg/dL (8.8-10.5); CREATININE 2.34 mg/dL (0.60-1.30); POTASSIUM 3.6 mmol/L (3.5-5.1)
[2019-05-29] MEDS: OCTREOTIDE ACETATE 500 MCG in SODIUM CHLORIDE 0.9% 97.5 ML IV SCH (16:27)
[2019-05-29] MEDS ORDERED: VANCOMYCIN HCL 500 MG in DEXTROSE 5%-WATER 100 ML IV ONE (17:00)
[2019-05-29 20:00] VITALS: BP_SYST 100; BP_DIAS 27; BP_DIAS 77
[2019-05-30] VITALS: BP 107/29
[2019-05-30] MEDS: PANTOPRAZOLE SODIUM 80 MG in SODIUM CHLORIDE 0.9% 100 ML IV SCH ×3 (01:25→21:35)
[2019-05-30] MEDS ORDERED: SODIUM CHLORIDE 0.9% 100 ML ONE (03:35)
[2019-05-30] MEDS: VASOPRESSIN 40 UNITS in SODIUM CHLORIDE 0.9% 98 ML IV PRN ×2 (03:36→15:58)
[2019-05-30] MEDS: NOREPINEPHRINE BITARTRATE IV PRN ×4 (03:38→22:53)
[2019-05-30] MEDS: SODIUM CHLORIDE 0.9% IV PRN ×4 (03:38→22:53)
[2019-05-30] MEDS: PROPOFOL 1000 MG/ISO-OSM 100 ML IV PRN ×3 (03:39→20:22)
[2019-05-30 04:00] VITALS: BP 102/27
[2019-05-30] MEDS: DOPamine HCL 800 MG/D5%-WATER 250 ML IV PRN ×4 (04:00→22:46)
[2019-05-30] MEDS: POTASSIUM CHLORIDE 15 MEQ in NXSTAGE RFP-402 K0/CA3 5,000 ML IRRIG PRN ×3 (04:56→18:03)
[2019-05-30 05:48] LABS: BASOPHILS % (AUTO) 0.6 % (0.0-2.0); EOSINOPHILS % (AUTO) 1.1 % (1.0-6.0); HEMATOCRIT 25.2 % (36-46); HEMOGLOBIN 8.4 g/dL (12.0-16.0); MEAN CORPUSCULAR HEMOGLOBIN 32.7 pg (26.0-34.0); MEAN CORPUSCULAR HGB CONC 33.4 G/dL (31.0-37.0); MEAN CORPUSCULAR VOLUME 98 fL (80-100); MONOCYTES # (AUTO) 0.7 K/uL (0.1-1.0); MONOCYTES % (AUTO) 5.3 % (2.0-9.0); NEUTROPHILS # (AUTO) 10.9 K/uL (1.8-7.7); PLATELET COUNT (AUTO) 32 K/uL (150-450); RED BLOOD CELL COUNT(AUTO) 2.57 MIL/uL (4.00-5.20); RED CELL DISTRIBUTION WIDTH 17.1 % (11.5-14.5)
[2019-05-30] MEDS: MEROPENEM 2 GM in SODIUM CHLORIDE 0.9% 100 ML IV SCH ×2 (06:00→18:03)
[2019-05-30] MEDS: OCTREOTIDE ACETATE 500 MCG in SODIUM CHLORIDE 0.9% 97.5 ML IV SCH ×2 (06:00→12:35)
[2019-05-30 06:02] LABS: ALBUMIN 1.5 g/dL (3.4-5.0); BILIRUBIN,TOTAL 6.2 mg/dL (0.1-1.0); CREATININE 2.14 mg/dL (0.60-1.30); MAGNESIUM 1.8 mg/dL (1.80-2.40); POTASSIUM 3.7 mmol/L (3.5-5.1); TOTAL PROTEIN, SERUM 4.7 g/dL (6.4-8.2)
[2019-05-30 08:00] VITALS: BP 105/27
[2019-05-30] MEDS: PHENYLEPHRINE HCL 200 MG in SODIUM CHLORIDE 0.9% 230 ML IV PRN ×2 (11:16→18:04)
[2019-05-30 11:30] LABS: ABG A-A DIFF O2 143.3 mmHg (10-20.0); ABG BASE EXCESS -1.1 mmol/L (-2.0-3.0); ABG CARBOXYHEMOGLOBIN 0.5 % (0.0-1.5); ABG HCO3 23.6 mmol/L (22.0-26.0); ABG METHEMOGLOBIN 0.3 % (0.0-1.5); ABG OXYGEN CONTENT 12.2 mL/dL (15.0-23.0); ABG OXYGEN SATURATION 97.7 % (95.0-98.0); ABG OXYHEMOGLOBIN 96.9 % (94.0-100.0); ABG PCO2 40 mmHg (35-45); ABG PH 7.397 (7.35-7.450); ABG TOTAL HEMOGLOBIN 8.8 G/dL (12.0-18.0); PO2, ARTERIAL BG 97.2 mmHg (84.0-92.0); SOURCE, BLOOD GAS ARTERIAL; TEMPERATURE, FAHRENHEIT, BG 97.5 FAHREN (96.0-98.6)
[2019-05-30 11:38] LABS: SITE, BLOOD GAS ARTERIAL LINE
[2019-05-30 11:39] LABS: O2 DEVICE,BLOOD GAS VENTILATOR (ROOM AIR); PEEP,BG 5 cm H2O; VT, ABG 500 ml
[2019-05-30 12:00] VITALS: BP 99/24
[2019-05-30] MEDS ORDERED: ALBUMIN HUMAN 25%-12.5GM/50ML 50 ML IV ONE (12:00)
[2019-05-30] MEDS: LEVOFLOXACIN 500 MG/D5% WATER 100 ML IV SCH (15:37)
[2019-05-30 16:00] VITALS: BP 95/25
[2019-05-30] MEDS ORDERED: VANCOMYCIN HCL 500 MG in DEXTROSE 5%-WATER 100 ML IV ONE (17:00)
[2019-05-30 20:00] VITALS: BP 97/25
[2019-05-30] MEDS: EPINEPHrine 2 MG in DEXTROSE 5%-WATER 248 ML IV PRN (22:45)
[2019-05-30] MEDS: ALBUMIN HUMAN 25%-12.5GM/50ML 50 ML IV SCH (22:49)
[2019-05-31] VITALS: BP 91/24
[2019-05-31] MEDS ORDERED: SODIUM CHLORIDE 0.9% 1,000 ML IV ONE ×2 (00:29→15:56)
[2019-05-31] MEDS: EPINEPHrine 2 MG in DEXTROSE 5%-WATER 248 ML IV PRN ×6 (02:20→22:01)
[2019-05-31] MEDS: OCTREOTIDE ACETATE 500 MCG in SODIUM CHLORIDE 0.9% 97.5 ML IV SCH ×2 (02:36→10:11)
[2019-05-31] MEDS: POTASSIUM CHLORIDE 15 MEQ in NXSTAGE RFP-402 K0/CA3 5,000 ML IRRIG PRN ×2 (02:48→07:47)
[2019-05-31 04:00] VITALS: BP_SYST 90; BP_SYST 94; BP_DIAS 27
[2019-05-31] MEDS: DOPamine HCL 800 MG/D5%-WATER 250 ML IV PRN ×4 (04:52→22:36)
[2019-05-31] MEDS: NOREPINEPHRINE BITARTRATE IV PRN ×3 (04:53→18:14)
[2019-05-31] MEDS: SODIUM CHLORIDE 0.9% IV PRN ×3 (04:53→18:14)
[2019-05-31] MEDS: PHENYLEPHRINE HCL 200 MG in SODIUM CHLORIDE 0.9% 230 ML IV PRN ×2 (04:54→21:15)
[2019-05-31] MEDS ORDERED: SODIUM CHLORIDE 0.9% 500 ML IV ONE (05:10)
[2019-05-31] MEDS ORDERED: SODIUM CHLORIDE 0.9% 250 ML IV ONE (05:10)
[2019-05-31 05:11] LABS: HEMATOCRIT 23.9 % (36-46); HEMOGLOBIN 7.8 g/dL (12.0-16.0); MEAN CORPUSCULAR HEMOGLOBIN 32.2 pg (26.0-34.0); MEAN CORPUSCULAR HGB CONC 32.8 G/dL (31.0-37.0); MEAN CORPUSCULAR VOLUME 98 fL (80-100); PLATELET COUNT (AUTO) 25 K/uL (150-450); RED BLOOD CELL COUNT(AUTO) 2.43 MIL/uL (4.00-5.20); RED CELL DISTRIBUTION WIDTH 17.3 % (11.5-14.5)
[2019-05-31 05:33] LABS: ALBUMIN 1.7 g/dL (3.4-5.0); BILIRUBIN,TOTAL 6.3 mg/dL (0.1-1.0); CALCIUM, TOTAL 8.4 mg/dL (8.8-10.5); CREATININE 1.9 mg/dL (0.60-1.30); POTASSIUM 3.5 mmol/L (3.5-5.1); TOTAL PROTEIN, SERUM 4.8 g/dL (6.4-8.2); VANCOMYCIN,RANDOM 17.9 mcg/mL (25.0-50.0)
[2019-05-31 05:35] LABS: BAND NEUTROPHILS % (MANUAL) 13 % (0-5); EOSINOPHILS % (MANUAL) 2 % (1-6); LYMPHOCYTES % (MANUAL) 9 % (22-44); MONOCYTES % (MANUAL) 5 % (2-9); SEGMENTED NEUTROPHILS % 71 % (40-70)
[2019-05-31] MEDS: MEROPENEM 2 GM in SODIUM CHLORIDE 0.9% 100 ML IV SCH ×2 (06:01→18:13)
[2019-05-31 07:57] LABS: ABG A-A DIFF O2 139.9 mmHg (10-20.0); ABG BASE EXCESS -5.2 mmol/L (-2.0-3.0); ABG CARBOXYHEMOGLOBIN 0.4 % (0.0-1.5); ABG HCO3 20.5 mmol/L (22.0-26.0); ABG METHEMOGLOBIN 0.3 % (0.0-1.5); ABG OXYGEN CONTENT 11.9 mL/dL (15.0-23.0); ABG OXYGEN SATURATION 97.6 % (95.0-98.0); ABG OXYHEMOGLOBIN 96.9 % (94.0-100.0); ABG PCO2 36 mmHg (35-45); ABG PH 7.369 (7.35-7.450); ABG TOTAL HEMOGLOBIN 8.6 G/dL (12.0-18.0); PO2, ARTERIAL BG 104.4 mmHg (84.0-92.0); SOURCE, BLOOD GAS ARTERIAL; TEMPERATURE, FAHRENHEIT, BG 98.6 FAHREN (96.0-98.6)
[2019-05-31 08:00] VITALS: BP 95/25
[2019-05-31 08:00] LABS: SITE, BLOOD GAS ARTERIAL LINE
[2019-05-31 08:01] LABS: O2 DEVICE,BLOOD GAS VENTILATOR (ROOM AIR); PEEP,BG 5 cm H2O; VT, ABG 500 ml
[2019-05-31] MEDS: PANTOPRAZOLE SODIUM 80 MG in SODIUM CHLORIDE 0.9% 100 ML IV SCH (08:10)
[2019-05-31] MEDS ORDERED: VANCOMYCIN HCL 750 MG in DEXTROSE 5%-WATER 250 ML IV ONE (09:00)
[2019-05-31] MEDS: EPOETIN ALFA 10,000 UNITS/ML VIAL SQ SCH (09:10)
[2019-05-31] MEDS: ALBUMIN HUMAN 25%-12.5GM/50ML 50 ML IV SCH ×2 (10:11→22:01)
[2019-05-31] MEDS: VASOPRESSIN 40 UNITS in SODIUM CHLORIDE 0.9% 98 ML IV PRN (10:11)
[2019-05-31 11:08] LABS: MAGNESIUM 1.6 mg/dL (1.80-2.40)
[2019-05-31] MEDS: POTASSIUM CHLORIDE 20 MEQ in NXSTAGE RFP-402 K0/CA3 5,000 ML IRRIG PRN ×3 (11:57→23:18)
[2019-05-31 12:00] VITALS: BP 94/25
[2019-05-31] MEDS ORDERED: MAGNESIUM SULFATE 2 GM/WATER 50 ML IV ONE (12:45)
[2019-05-31 16:00] VITALS: BP 108/30
[2019-05-31 20:00] VITALS: BP 112/34
[2019-05-31] MEDS: PANTOPRAZOLE SODIUM 40 MG/VIAL IVP SCH (21:13)
[2019-06-01] VITALS: BP 112/36
[2019-06-01] MEDS: SODIUM CHLORIDE 0.9% IV PRN ×4 (00:50→19:25)
[2019-06-01] MEDS: NOREPINEPHRINE BITARTRATE IV PRN ×4 (00:50→19:25)
[2019-06-01 04:00] VITALS: BP 115/38
[2019-06-01 05:03] LABS: BASOPHILS % (AUTO) 0.3 % (0.0-2.0); EOSINOPHILS % (AUTO) 1.8 % (1.0-6.0); HEMATOCRIT 25.6 % (36-46); HEMOGLOBIN 8.4 g/dL (12.0-16.0); LYMPHOCYTES # (AUTO) 1.6 K/uL (1.0-4.8); LYMPHOCYTES % (AUTO) 11.3 % (22.0-44.0); MEAN CORPUSCULAR HEMOGLOBIN 32.1 pg (26.0-34.0); MEAN CORPUSCULAR HGB CONC 32.9 G/dL (31.0-37.0); MEAN CORPUSCULAR VOLUME 98 fL (80-100); MONOCYTES # (AUTO) 0.7 K/uL (0.1-1.0); MONOCYTES % (AUTO) 4.9 % (2.0-9.0); NEUTROPHILS # (AUTO) 11.7 K/uL (1.8-7.7); NEUTROPHILS % (AUTO) 81.7 % (40.0-70.0); RED BLOOD CELL COUNT(AUTO) 2.62 MIL/uL (4.00-5.20); RED CELL DISTRIBUTION WIDTH 16.9 % (11.5-14.5)
[2019-06-01 05:22] LABS: BILIRUBIN,TOTAL 6.9 mg/dL (0.1-1.0); CALCIUM, TOTAL 8.7 mg/dL (8.8-10.5); CREATININE 1.57 mg/dL (0.60-1.30); MAGNESIUM 1.9 mg/dL (1.80-2.40); PHOSPHORUS 2.5 mg/dL (2.5-4.9); POTASSIUM 3.6 mmol/L (3.5-5.1); TOTAL PROTEIN, SERUM 5.2 g/dL (6.4-8.2)
[2019-06-01 06:05] LABS: PLATELET COUNT (AUTO) 19 K/uL (150-450)
[2019-06-01] MEDS: DOPamine HCL 800 MG/D5%-WATER 250 ML IV PRN ×3 (06:21→20:30)
[2019-06-01] MEDS: VASOPRESSIN 40 UNITS in SODIUM CHLORIDE 0.9% 98 ML IV PRN ×2 (06:21→18:54)
[2019-06-01] MEDS: MEROPENEM 2 GM in SODIUM CHLORIDE 0.9% 100 ML IV SCH ×2 (07:09→18:53)
[2019-06-01 08:00] VITALS: BP 120/41
[2019-06-01] MEDS: PANTOPRAZOLE SODIUM 40 MG/VIAL IVP SCH ×2 (08:56→21:17)
[2019-06-01] MEDS: PHENYLEPHRINE HCL 200 MG in SODIUM CHLORIDE 0.9% 230 ML IV PRN ×2 (08:58→19:24)
[2019-06-01] MEDS: POTASSIUM CHLORIDE 20 MEQ in NXSTAGE RFP-402 K0/CA3 5,000 ML IRRIG PRN ×4 (09:18→19:35)
[2019-06-01] MEDS: ALBUMIN HUMAN 25%-12.5GM/50ML 50 ML IV SCH ×2 (10:01→21:17)
[2019-06-01 11:01] LABS: ABG A-A DIFF O2 123.5 mmHg (10-20.0); ABG BASE EXCESS -3.3 mmol/L (-2.0-3.0); ABG CARBOXYHEMOGLOBIN 0.3 % (0.0-1.5); ABG METHEMOGLOBIN 0.3 % (0.0-1.5); ABG OXYGEN CONTENT 12.6 mL/dL (15.0-23.0); ABG OXYGEN SATURATION 98.5 % (95.0-98.0); ABG OXYHEMOGLOBIN 97.9 % (94.0-100.0); ABG PCO2 37 mmHg (35-45); ABG PH 7.383 (7.35-7.450); PO2, ARTERIAL BG 119.8 mmHg (84.0-92.0); SOURCE, BLOOD GAS ARTERIAL; TEMPERATURE, FAHRENHEIT, BG 96.8 FAHREN (96.0-98.6)
[2019-06-01 11:02] LABS: O2 DEVICE,BLOOD GAS VENTILATOR (ROOM AIR); PEEP,BG 5 cm H2O; SITE, BLOOD GAS ARTERIAL LINE; SPONTANEOUS VT, BG 569 ml; VT, ABG 500 ml
[2019-06-01] MEDS ORDERED: SODIUM CHLORIDE 0.9% 250 ML IV ONE (11:47)
[2019-06-01 12:00] VITALS: BP 107/34
[2019-06-01] MEDS ORDERED: VANCOMYCIN HCL 500 MG in DEXTROSE 5%-WATER 100 ML IV ONE (13:00)
[2019-06-01 16:00] VITALS: BP 103/31
[2019-06-01] MEDS: LEVOFLOXACIN 500 MG/D5% WATER 100 ML IV SCH (17:31)
[2019-06-01 20:00] VITALS: BP 110/36
[2019-06-02] VITALS: BP 106/35
[2019-06-02] MEDS: DOPamine HCL 800 MG/D5%-WATER 250 ML IV PRN ×2 (03:46→09:54)
[2019-06-02] MEDS: NOREPINEPHRINE BITARTRATE IV PRN ×3 (03:46→17:49)
[2019-06-02] MEDS: SODIUM CHLORIDE 0.9% IV PRN ×3 (03:46→17:49)
[2019-06-02 04:00] VITALS: BP 97/30
[2019-06-02 04:49] LABS: BASOPHILS % (AUTO) 0.7 % (0.0-2.0); EOSINOPHILS % (AUTO) 1.1 % (1.0-6.0); HEMATOCRIT 24.6 % (36-46); LYMPHOCYTES # (AUTO) 1.5 K/uL (1.0-4.8); LYMPHOCYTES % (AUTO) 11.7 % (22.0-44.0); MEAN CORPUSCULAR HEMOGLOBIN 31.4 pg (26.0-34.0); MEAN CORPUSCULAR HGB CONC 32.4 G/dL (31.0-37.0); MEAN CORPUSCULAR VOLUME 97 fL (80-100); MONOCYTES # (AUTO) 0.7 K/uL (0.1-1.0); MONOCYTES % (AUTO) 5.5 % (2.0-9.0); NEUTROPHILS # (AUTO) 10.3 K/uL (1.8-7.7); RED BLOOD CELL COUNT(AUTO) 2.55 MIL/uL (4.00-5.20)
[2019-06-02 04:56] LABS: PLATELET COUNT (AUTO) 17 K/uL (150-450)
[2019-06-02 05:04] LABS: ALBUMIN 2.1 g/dL (3.4-5.0); BILIRUBIN,TOTAL 7.2 mg/dL (0.1-1.0); CALCIUM, TOTAL 8.9 mg/dL (8.8-10.5); CREATININE 1.43 mg/dL (0.60-1.30); POTASSIUM 3.8 mmol/L (3.5-5.1); TOTAL PROTEIN, SERUM 5.1 g/dL (6.4-8.2); VANCOMYCIN,RANDOM 16.6 mcg/mL (25.0-50.0)
[2019-06-02] MEDS: POTASSIUM CHLORIDE 20 MEQ in NXSTAGE RFP-402 K0/CA3 5,000 ML IRRIG PRN ×4 (05:34→19:32)
[2019-06-02] MEDS: MEROPENEM 2 GM in SODIUM CHLORIDE 0.9% 100 ML IV SCH ×2 (06:46→19:33)
[2019-06-02 08:00] VITALS: BP 101/32
[2019-06-02] MEDS: EPOETIN ALFA 10,000 UNITS/ML VIAL SQ SCH (08:50)
[2019-06-02] MEDS: PANTOPRAZOLE SODIUM 40 MG/VIAL IVP SCH ×2 (08:50→21:03)
[2019-06-02] MEDS ORDERED: VANCOMYCIN HCL 750 MG in DEXTROSE 5%-WATER 250 ML IV ONE (09:00)
[2019-06-02 09:11] LABS: ABG BASE EXCESS -3.4 mmol/L (-2.0-3.0); ABG CARBOXYHEMOGLOBIN 0.4 % (0.0-1.5); ABG METHEMOGLOBIN 0.3 % (0.0-1.5); ABG OXYGEN CONTENT 12.1 mL/dL (15.0-23.0); ABG OXYGEN SATURATION 97.8 % (95.0-98.0); ABG OXYHEMOGLOBIN 97.1 % (94.0-100.0); ABG PCO2 34 mmHg (35-45); ABG PH 7.415 (7.35-7.450); ABG TOTAL HEMOGLOBIN 8.7 G/dL (12.0-18.0); O2 DEVICE,BLOOD GAS VENTILATOR (ROOM AIR); PO2, ARTERIAL BG 101.3 mmHg (84.0-92.0); SITE, BLOOD GAS ARTERIAL LINE; SOURCE, BLOOD GAS ARTERIAL; TEMPERATURE, FAHRENHEIT, BG 98.6 FAHREN (96.0-98.6)
[2019-06-02 09:12] LABS: PEEP,BG 5 cm H2O; VT, ABG 500 ml
[2019-06-02] MEDS: VASOPRESSIN 40 UNITS in SODIUM CHLORIDE 0.9% 98 ML IV PRN (09:55)
[2019-06-02] MEDS: ALBUMIN HUMAN 25%-12.5GM/50ML 50 ML IV SCH ×2 (09:59→21:04)
[2019-06-02 12:00] VITALS: BP 104/36
[2019-06-02 16:00] VITALS: BP 105/35
[2019-06-02 20:00] VITALS: BP 100/33
[2019-06-03 00:12] VITALS: BP 103/30
[2019-06-03] MEDS: SODIUM CHLORIDE 0.9% IV PRN ×4 (01:26→19:57)
[2019-06-03] MEDS: NOREPINEPHRINE BITARTRATE IV PRN ×4 (01:26→19:57)
[2019-06-03] MEDS: POTASSIUM CHLORIDE 20 MEQ in NXSTAGE RFP-402 K0/CA3 5,000 ML IRRIG PRN ×3 (02:21→22:31)
[2019-06-03 04:00] VITALS: BP 97/32
[2019-06-03] MEDS: DOPamine HCL 800 MG/D5%-WATER 250 ML IV PRN ×2 (04:34→17:03)
[2019-06-03 05:27] LABS: EOSINOPHILS % (AUTO) 1.4 % (1.0-6.0); HEMATOCRIT 23.2 % (36-46); HEMOGLOBIN 7.8 g/dL (12.0-16.0); LYMPHOCYTES # (AUTO) 1.8 K/uL (1.0-4.8); LYMPHOCYTES % (AUTO) 13.6 % (22.0-44.0); MEAN CORPUSCULAR HEMOGLOBIN 32.8 pg (26.0-34.0); MEAN CORPUSCULAR HGB CONC 33.6 G/dL (31.0-37.0); MEAN CORPUSCULAR VOLUME 97 fL (80-100); MONOCYTES # (AUTO) 0.7 K/uL (0.1-1.0); NEUTROPHILS # (AUTO) 10.4 K/uL (1.8-7.7); RED BLOOD CELL COUNT(AUTO) 2.38 MIL/uL (4.00-5.20); RED CELL DISTRIBUTION WIDTH 17.3 % (11.5-14.5)
[2019-06-03 06:00] LABS: PLATELET COUNT (AUTO) 15 K/uL (150-450)
[2019-06-03 06:03] LABS: ALBUMIN 2.2 g/dL (3.4-5.0); BILIRUBIN,TOTAL 7.2 mg/dL (0.1-1.0); CALCIUM, TOTAL 8.8 mg/dL (8.8-10.5); CREATININE 1.45 mg/dL (0.60-1.30); FREE T4 (FREE THYROXINE) 0.22 ng/dL (0.76-1.46); MAGNESIUM 1.6 mg/dL (1.80-2.40); PHOSPHORUS 2.5 mg/dL (2.5-4.9); POTASSIUM 3.9 mmol/L (3.5-5.1); THYROID STIMULATING HORMONE 0.51 uIU/mL (0.36-3.74); TOTAL PROTEIN, SERUM 5.1 g/dL (6.4-8.2); VANCOMYCIN,RANDOM 17.9 mcg/mL (25.0-50.0)
[2019-06-03] MEDS: MEROPENEM 2 GM in SODIUM CHLORIDE 0.9% 100 ML IV SCH ×2 (06:44→18:58)
[2019-06-03] MEDS: LEVOTHYROXINE SODIUM 25 MCG TABLET PO SCH (06:44)
[2019-06-03] MEDS ORDERED: SODIUM CHLORIDE 0.9% 250 ML IV ONE (06:51)
[2019-06-03] MEDS ORDERED: SODIUM CHLORIDE 0.9% 500 ML IV ONE (06:51)
[2019-06-03 08:00] VITALS: BP 100/29
[2019-06-03] MEDS ORDERED: MAGNESIUM SULFATE 4 GM/WATER 100 ML IV ONE (09:00)
[2019-06-03] MEDS ORDERED: RAPID SEQUENCE KIT [RSI] 1 EACH KIT ONE (09:25)
[2019-06-03] MEDS ORDERED: VANCOMYCIN HCL 500 MG in DEXTROSE 5%-WATER 100 ML IV ONE (10:00)
[2019-06-03] MEDS: PANTOPRAZOLE SODIUM 40 MG/VIAL IVP SCH ×2 (10:10→19:57)
[2019-06-03] MEDS: ALBUMIN HUMAN 25%-12.5GM/50ML 50 ML IV SCH ×2 (10:11→22:03)
[2019-06-03] MEDS: VASOPRESSIN 40 UNITS in SODIUM CHLORIDE 0.9% 98 ML IV PRN (10:11)
[2019-06-03 10:30] LABS: ABG A-A DIFF O2 121.4 mmHg (10-20.0); ABG BASE EXCESS -4.5 mmol/L (-2.0-3.0); ABG CARBOXYHEMOGLOBIN 0.6 % (0.0-1.5); ABG HCO3 21.1 mmol/L (22.0-26.0); ABG METHEMOGLOBIN 0.3 % (0.0-1.5); ABG OXYGEN CONTENT 11.9 mL/dL (15.0-23.0); ABG OXYGEN SATURATION 97.2 % (95.0-98.0); ABG OXYHEMOGLOBIN 96.3 % (94.0-100.0); ABG PCO2 33 mmHg (35-45); ABG PH 7.404 (7.35-7.450); ABG TOTAL HEMOGLOBIN 8.7 G/dL (12.0-18.0); O2 DEVICE,BLOOD GAS VENTILATOR (ROOM AIR); SITE, BLOOD GAS ARTERIAL LINE; SOURCE, BLOOD GAS ARTERIAL; TEMPERATURE, FAHRENHEIT, BG 98.1 FAHREN (96.0-98.6)
[2019-06-03 10:31] LABS: PEEP,BG 5 cm H2O; VT, ABG 500 ml
[2019-06-03 12:00] VITALS: BP 92/25
[2019-06-03 12:32] LABS: HEMATOCRIT 23.1 % (36-46); HEMOGLOBIN 7.6 g/dL (12.0-16.0)
[2019-06-03 12:45] LABS: INR 1.6 (0.9-1.1); PROTHROMBIN TIME 16.7 SEC (9.4-11.6)
[2019-06-03] MEDS ORDERED: SODIUM CHLORIDE 0.9% 2,000 ML IV ONE (15:08)
[2019-06-03 16:00] VITALS: BP 99/26
[2019-06-03] MEDS: LEVOFLOXACIN 500 MG/D5% WATER 100 ML IV SCH (17:02)
[2019-06-03 20:00] VITALS: BP 98/29
[2019-06-04] VITALS: BP 104/33
[2019-06-04] MEDS: SODIUM CHLORIDE 0.9% IV PRN ×4 (03:11→21:42)
[2019-06-04] MEDS: NOREPINEPHRINE BITARTRATE IV PRN ×4 (03:11→21:42)
[2019-06-04] MEDS: POTASSIUM CHLORIDE 20 MEQ in NXSTAGE RFP-402 K0/CA3 5,000 ML IRRIG PRN ×5 (03:15→21:42)
[2019-06-04] MEDS: VASOPRESSIN 40 UNITS in SODIUM CHLORIDE 0.9% 98 ML IV PRN ×2 (03:22→18:49)
[2019-06-04 04:00] VITALS: BP 106/32
[2019-06-04 05:58] LABS: BASOPHILS % (AUTO) 0.6 % (0.0-2.0); EOSINOPHILS % (AUTO) 1.1 % (1.0-6.0); HEMATOCRIT 22.5 % (36-46); HEMOGLOBIN 7.5 g/dL (12.0-16.0); LYMPHOCYTES % (AUTO) 13.2 % (22.0-44.0); MEAN CORPUSCULAR HEMOGLOBIN 32.5 pg (26.0-34.0); MEAN CORPUSCULAR HGB CONC 33.4 G/dL (31.0-37.0); MEAN CORPUSCULAR VOLUME 97 fL (80-100); MONOCYTES # (AUTO) 0.9 K/uL (0.1-1.0); MONOCYTES % (AUTO) 5.7 % (2.0-9.0); NEUTROPHILS % (AUTO) 79.4 % (40.0-70.0); RED BLOOD CELL COUNT(AUTO) 2.31 MIL/uL (4.00-5.20); RED CELL DISTRIBUTION WIDTH 17.2 % (11.5-14.5)
[2019-06-04] MEDS: LEVOTHYROXINE SODIUM 25 MCG TABLET PO SCH (06:01)
[2019-06-04] MEDS: MEROPENEM 2 GM in SODIUM CHLORIDE 0.9% 100 ML IV SCH ×2 (06:02→18:01)
[2019-06-04 06:06] LABS: ALBUMIN 2.4 g/dL (3.4-5.0); BILIRUBIN,TOTAL 7.2 mg/dL (0.1-1.0); CREATININE 1.54 mg/dL (0.60-1.30); TOTAL PROTEIN, SERUM 5.2 g/dL (6.4-8.2); VANCOMYCIN,RANDOM 18.3 mcg/mL (25.0-50.0)
[2019-06-04 06:19] LABS: PLATELET COUNT (AUTO) 15 K/uL (150-450)
[2019-06-04 07:22] LABS: MAGNESIUM 1.9 mg/dL (1.80-2.40)
[2019-06-04 08:00] VITALS: BP 96/28
[2019-06-04] MEDS: EPOETIN ALFA 10,000 UNITS/ML VIAL SQ SCH (08:44)
[2019-06-04] MEDS: PANTOPRAZOLE SODIUM 40 MG/VIAL IVP SCH ×2 (08:44→20:30)
[2019-06-04] MEDS ORDERED: SODIUM CHLORIDE 0.9% 500 ML IV ONE (09:41)
[2019-06-04] MEDS ORDERED: VANCOMYCIN HCL 500 MG in DEXTROSE 5%-WATER 100 ML IV ONE (10:00)
[2019-06-04] MEDS: DOPamine HCL 800 MG/D5%-WATER 250 ML IV PRN (10:13)
[2019-06-04] MEDS: ALBUMIN HUMAN 25%-12.5GM/50ML 50 ML IV SCH ×2 (10:17→21:07)
[2019-06-04] MEDS ORDERED: SODIUM CHLORIDE 0.9% 250 ML IV ONE (10:20)
[2019-06-04 12:00] VITALS: BP 102/26
[2019-06-04 12:51] LABS: ABG A-A DIFF O2 125.6 mmHg (10-20.0); ABG BASE EXCESS -2.4 mmol/L (-2.0-3.0); ABG HCO3 22.7 mmol/L (22.0-26.0); ABG METHEMOGLOBIN 0.3 % (0.0-1.5); ABG OXYGEN CONTENT 10.4 mL/dL (15.0-23.0); ABG OXYGEN SATURATION 96.9 % (95.0-98.0); ABG OXYHEMOGLOBIN 95.6 % (94.0-100.0); ABG PCO2 34 mmHg (35-45); ABG PH 7.428 (7.35-7.450); PO2, ARTERIAL BG 84.9 mmHg (84.0-92.0); SOURCE, BLOOD GAS ARTERIAL; TEMPERATURE, FAHRENHEIT, BG 97.5 FAHREN (96.0-98.6)
[2019-06-04 12:53] LABS: ABG TOTAL HEMOGLOBIN 7.6 G/dL (12.0-18.0); O2 DEVICE,BLOOD GAS VENTILATOR (ROOM AIR); SITE, BLOOD GAS A LINE; VENT MODE, BG CPAP (ROOM AIR)
[2019-06-04 12:54] LABS: PEEP,BG 0 cm H2O; PRESSURE SUPPORT, BG 8 cm H2O; SPONTANEOUS VT, BG 470 ml; VT, ABG 470 ml
[2019-06-04 16:00] VITALS: BP 102/32
[2019-06-04] MEDS: HYDROCORTISONE SOD SUCC 100 MG/2 ML VIAL IVP SCH ×2 (19:07→23:26)
[2019-06-04 20:00] VITALS: BP 103/30
[2019-06-04] MEDS: LACTULOSE 20 GM/30 ML SOLUTION UDCUP PO SCH (20:30)
[2019-06-05] VITALS: BP 94/31
[2019-06-05] MEDS: POTASSIUM CHLORIDE 20 MEQ in NXSTAGE RFP-402 K0/CA3 5,000 ML IRRIG PRN ×5 (03:01→22:21)
[2019-06-05] MEDS: NOREPINEPHRINE BITARTRATE IV PRN ×3 (03:15→18:06)
[2019-06-05] MEDS: SODIUM CHLORIDE 0.9% IV PRN ×3 (03:15→18:06)
[2019-06-05 04:00] VITALS: BP 99/38
[2019-06-05] MEDS ORDERED: SODIUM CHLORIDE 0.9% 250 ML IV ONE (04:27)
[2019-06-05] MEDS: LEVOTHYROXINE SODIUM 25 MCG TABLET PO SCH (05:44)
[2019-06-05] MEDS: HYDROCORTISONE SOD SUCC 100 MG/2 ML VIAL IVP SCH ×3 (05:44→17:42)
[2019-06-05] MEDS: MEROPENEM 2 GM in SODIUM CHLORIDE 0.9% 100 ML IV SCH ×2 (06:17→18:07)
[2019-06-05 06:36] LABS: BASOPHILS % (AUTO) 0.3 % (0.0-2.0); EOSINOPHILS % (AUTO) 0.1 % (1.0-6.0); HEMATOCRIT 21.2 % (36-46); HEMOGLOBIN 7.1 g/dL (12.0-16.0); LYMPHOCYTES # (AUTO) 1.1 K/uL (1.0-4.8); LYMPHOCYTES % (AUTO) 8.1 % (22.0-44.0); MEAN CORPUSCULAR HEMOGLOBIN 32.8 pg (26.0-34.0); MEAN CORPUSCULAR HGB CONC 33.6 G/dL (31.0-37.0); MEAN CORPUSCULAR VOLUME 97 fL (80-100); MONOCYTES # (AUTO) 0.5 K/uL (0.1-1.0); NEUTROPHILS # (AUTO) 11.9 K/uL (1.8-7.7); RED BLOOD CELL COUNT(AUTO) 2.18 MIL/uL (4.00-5.20); RED CELL DISTRIBUTION WIDTH 17.2 % (11.5-14.5)
[2019-06-05 06:52] LABS: CREATININE 1.54 mg/dL (0.60-1.30); POTASSIUM 4.4 mmol/L (3.5-5.1); VANCOMYCIN,RANDOM 16.3 mcg/mL (25.0-50.0)
[2019-06-05 06:58] LABS: NEUTROPHILS % (AUTO) 87.5 % (40.0-70.0); PLATELET COUNT (AUTO) 14 K/uL (150-450)
[2019-06-05 08:00] VITALS: BP 100/39
[2019-06-05] MEDS: PANTOPRAZOLE SODIUM 40 MG/VIAL IVP SCH ×2 (08:33→21:06)
[2019-06-05] MEDS: LACTULOSE 20 GM/30 ML SOLUTION UDCUP PO SCH ×2 (09:00→20:33)
[2019-06-05] MEDS ORDERED: VANCOMYCIN HCL 750 MG in DEXTROSE 5%-WATER 250 ML IV ONE (10:00)
[2019-06-05] MEDS: ALBUMIN HUMAN 25%-12.5GM/50ML 50 ML IV SCH ×2 (10:00→21:07)
[2019-06-05] MEDS: VASOPRESSIN 40 UNITS in SODIUM CHLORIDE 0.9% 98 ML IV PRN (10:41)
[2019-06-05 12:00] VITALS: BP 92/32
[2019-06-05] MEDS ORDERED: SODIUM PHOS,M-BASIC-D-BASIC 30 MMOL in DEXTROSE 5%-WATER 250 ML IV ONE (12:45)
[2019-06-05 16:00] VITALS: BP 93/36
[2019-06-05] MEDS: LEVOFLOXACIN 500 MG/D5% WATER 100 ML IV SCH (17:43)
[2019-06-05 20:00] VITALS: BP 92/34
[2019-06-06] VITALS (9 sets, daily range): BP systolic 100–123; BP diastolic 35–82
[2019-06-06] MEDS: HYDROCORTISONE SOD SUCC 100 MG/2 ML VIAL IVP SCH ×5 (00:04→23:34)
[2019-06-06] MEDS ORDERED: SODIUM CHLORIDE 0.9% 500 ML IV ONE (00:30)
[2019-06-06] MEDS: NOREPINEPHRINE BITARTRATE IV PRN ×4 (01:26→22:39)
[2019-06-06] MEDS: SODIUM CHLORIDE 0.9% IV PRN ×4 (01:26→22:39)
[2019-06-06] MEDS: POTASSIUM CHLORIDE 20 MEQ in NXSTAGE RFP-402 K0/CA3 5,000 ML IRRIG PRN ×6 (02:13→23:56)
[2019-06-06] MEDS: VASOPRESSIN 40 UNITS in SODIUM CHLORIDE 0.9% 98 ML IV PRN ×2 (04:15→22:38)
[2019-06-06] MEDS ORDERED: SODIUM CHLORIDE 0.9% 250 ML IV ONE ×2 (05:36→17:47)
[2019-06-06] MEDS: LEVOTHYROXINE SODIUM 25 MCG TABLET PO SCH (05:37)
[2019-06-06] MEDS: MEROPENEM 2 GM in SODIUM CHLORIDE 0.9% 100 ML IV SCH ×2 (06:31→17:53)
[2019-06-06 06:49] LABS: BASOPHILS % (AUTO) 0.7 % (0.0-2.0); EOSINOPHILS % (AUTO) 0.1 % (1.0-6.0); HEMATOCRIT 21.2 % (36-46); LYMPHOCYTES # (AUTO) 1.4 K/uL (1.0-4.8); LYMPHOCYTES % (AUTO) 7.7 % (22.0-44.0); MEAN CORPUSCULAR HEMOGLOBIN 31.6 pg (26.0-34.0); MEAN CORPUSCULAR HGB CONC 32.9 G/dL (31.0-37.0); MEAN CORPUSCULAR VOLUME 96 fL (80-100); MONOCYTES # (AUTO) 0.7 K/uL (0.1-1.0); MONOCYTES % (AUTO) 4.2 % (2.0-9.0); NEUTROPHILS # (AUTO) 15.5 K/uL (1.8-7.7); PLATELET COUNT (AUTO) 26 K/uL (150-450); RED CELL DISTRIBUTION WIDTH 17.2 % (11.5-14.5)
[2019-06-06 06:50] LABS: NEUTROPHILS % (AUTO) 87.3 % (40.0-70.0)
[2019-06-06 07:03] LABS: CREATININE 1.51 mg/dL (0.60-1.30); MAGNESIUM 1.7 mg/dL (1.80-2.40); POTASSIUM 4.3 mmol/L (3.5-5.1); VANCOMYCIN,RANDOM 17.8 mcg/mL (25.0-50.0)
[2019-06-06] MEDS ORDERED: SODIUM CHLORIDE 0.9% 2,000 ML IV ONE (07:53)
[2019-06-06] MEDS: PANTOPRAZOLE SODIUM 40 MG/VIAL IVP SCH ×2 (07:58→21:30)
[2019-06-06] MEDS: LACTULOSE 20 GM/30 ML SOLUTION UDCUP PO SCH ×2 (07:59→21:30)
[2019-06-06] MEDS ORDERED: HEPARIN SODIUM,PORCINE 1,000 UNITS/ML VIAL IVP PRN ×2 (08:15)
[2019-06-06 08:44] LABS: PHOSPHORUS 3.9 mg/dL (2.5-4.9)
[2019-06-06] MEDS: ALBUMIN HUMAN 25%-12.5GM/50ML 50 ML IV SCH ×2 (09:43→21:31)
[2019-06-06] MEDS ORDERED: VANCOMYCIN HCL 500 MG in DEXTROSE 5%-WATER 100 ML IV ONE (10:00)
[2019-06-06] MEDS: PROPOFOL 1000 MG/ISO-OSM 100 ML IV PRN ×2 (10:51→16:19)
[2019-06-06 12:59] LABS: ABG BASE EXCESS -3.6 mmol/L (-2.0-3.0); ABG CARBOXYHEMOGLOBIN 1.2 % (0.0-1.5); ABG HCO3 21.4 mmol/L (22.0-26.0); ABG METHEMOGLOBIN 0.3 % (0.0-1.5); ABG OXYGEN CONTENT 9.7 mL/dL (15.0-23.0); ABG OXYGEN SATURATION 86.6 % (95.0-98.0); ABG OXYHEMOGLOBIN 85.3 % (94.0-100.0); ABG PCO2 48 mmHg (35-45); ABG PH 7.298 (7.35-7.450); O2 DEVICE,BLOOD GAS VENTILATOR (ROOM AIR); PO2, ARTERIAL BG 58.2 mmHg (84.0-92.0); SITE, BLOOD GAS ARTERIAL LINE; SOURCE, BLOOD GAS ARTERIAL; TEMPERATURE, FAHRENHEIT, BG 98.6 FAHREN (96.0-98.6)
[2019-06-06 13:00] LABS: PEEP,BG 5 cm H2O; VT, ABG 500 ml
[2019-06-06 15:10] LABS: ABG A-A DIFF O2 453.9 mmHg (10-20.0); ABG BASE EXCESS -2.8 mmol/L (-2.0-3.0); ABG CARBOXYHEMOGLOBIN 0.6 % (0.0-1.5); ABG HCO3 22.2 mmol/L (22.0-26.0); ABG METHEMOGLOBIN 0.3 % (0.0-1.5); ABG OXYGEN CONTENT 13.2 mL/dL (15.0-23.0); ABG OXYHEMOGLOBIN 94.1 % (94.0-100.0); ABG PCO2 41 mmHg (35-45); ABG PH 7.364 (7.35-7.450); ABG TOTAL HEMOGLOBIN 9.9 G/dL (12.0-18.0); PO2, ARTERIAL BG 75.2 mmHg (84.0-92.0); SOURCE, BLOOD GAS ARTERIAL; TEMPERATURE, FAHRENHEIT, BG 97.5 FAHREN (96.0-98.6)
[2019-06-06 15:13] LABS: O2 DEVICE,BLOOD GAS VENTILATOR (ROOM AIR); SITE, BLOOD GAS ARTERIAL LINE; VT, ABG 475 ml
[2019-06-06 15:14] LABS: PEEP,BG 7 cm H2O; SPONTANEOUS VT, BG 469 ml
[2019-06-06] MEDS ORDERED: SULFAMETHOX/TRIMETH 800-160 MG/20 ML SUSPENSION ORAL SYRINGE NG ONE (21:00)
[2019-06-07] VITALS (15 sets, daily range): BP systolic 89–131; BP diastolic 33–60
[2019-06-07] MEDS: LEVOTHYROXINE SODIUM 25 MCG TABLET PO SCH (06:04)
[2019-06-07] MEDS: HYDROCORTISONE SOD SUCC 100 MG/2 ML VIAL IVP SCH ×3 (06:04→17:39)
[2019-06-07] MEDS: MEROPENEM 2 GM in SODIUM CHLORIDE 0.9% 100 ML IV SCH ×2 (06:05→18:42)
[2019-06-07 06:34] LABS: BASOPHILS % (AUTO) 0.4 % (0.0-2.0); EOSINOPHILS % (AUTO) 0.1 % (1.0-6.0); LYMPHOCYTES # (AUTO) 1.2 K/uL (1.0-4.8); LYMPHOCYTES % (AUTO) 5.8 % (22.0-44.0); MEAN CORPUSCULAR HEMOGLOBIN 31.7 pg (26.0-34.0); MEAN CORPUSCULAR HGB CONC 32.7 G/dL (31.0-37.0); MEAN CORPUSCULAR VOLUME 97 fL (80-100); MONOCYTES # (AUTO) 0.8 K/uL (0.1-1.0); MONOCYTES % (AUTO) 4.1 % (2.0-9.0); PLATELET COUNT (AUTO) 31 K/uL (150-450); RED BLOOD CELL COUNT(AUTO) 2.14 MIL/uL (4.00-5.20); RED CELL DISTRIBUTION WIDTH 17.5 % (11.5-14.5)
[2019-06-07 06:47] LABS: ALBUMIN 2.8 g/dL (3.4-5.0); BILIRUBIN,TOTAL 9.5 mg/dL (0.1-1.0); CALCIUM, TOTAL 9.7 mg/dL (8.8-10.5); CREATININE 1.47 mg/dL (0.60-1.30); POTASSIUM 4.3 mmol/L (3.5-5.1); TOTAL PROTEIN, SERUM 5.6 g/dL (6.4-8.2); VANCOMYCIN,RANDOM 17.7 mcg/mL (25.0-50.0)
[2019-06-07 07:18] LABS: HEMOGLOBIN 6.8 g/dL (12.0-16.0)
[2019-06-07 07:19] LABS: HEMATOCRIT 20.7 % (36-46); NEUTROPHILS % (AUTO) 89.6 % (40.0-70.0)
[2019-06-07] MEDS: PANTOPRAZOLE SODIUM 40 MG/VIAL IVP SCH ×2 (07:58→21:32)
[2019-06-07] MEDS: PROPOFOL 1000 MG/ISO-OSM 100 ML IV PRN ×2 (07:59→15:00)
[2019-06-07 08:12] LABS: PHOSPHORUS 3.9 mg/dL (2.5-4.9)
[2019-06-07] MEDS ORDERED: SODIUM CHLORIDE 0.9% 250 ML IV ONE (08:53)
[2019-06-07] MEDS: SULFAMETHOX/TRIMETH 800-160 MG/20 ML SUSPENSION ORAL SYRINGE NG SCH ×2 (08:57→21:31)
[2019-06-07] MEDS: LACTULOSE 20 GM/30 ML SOLUTION UDCUP PO SCH ×2 (08:57→21:31)
[2019-06-07] MEDS: EPOETIN ALFA 10,000 UNITS/ML VIAL SQ SCH (08:58)
[2019-06-07] MEDS: SODIUM CHLORIDE 0.9% IV PRN ×2 (08:59→15:01)
[2019-06-07] MEDS: NOREPINEPHRINE BITARTRATE IV PRN ×2 (08:59→15:01)
[2019-06-07] MEDS: ALBUMIN HUMAN 25%-12.5GM/50ML 50 ML IV SCH ×2 (09:21→21:32)
[2019-06-07 10:27] LABS: C.DIFF GDH ANTIGEN, Stool Negative (Negative); C.DIFF TOXINS A&B, Stool Negative (Negative)
[2019-06-07] MEDS ORDERED: VANCOMYCIN HCL 500 MG in DEXTROSE 5%-WATER 100 ML IV ONE (11:00)
[2019-06-07 14:12] LABS: ABG A-A DIFF O2 318.3 mmHg (10-20.0); ABG BASE EXCESS -1.5 mmol/L (-2.0-3.0); ABG CARBOXYHEMOGLOBIN 1.1 % (0.0-1.5); ABG METHEMOGLOBIN 0.2 % (0.0-1.5); ABG OXYGEN CONTENT 10.6 mL/dL (15.0-23.0); ABG OXYGEN SATURATION 90.6 % (95.0-98.0); ABG OXYHEMOGLOBIN 89.4 % (94.0-100.0); ABG PCO2 46 mmHg (35-45); ABG PH 7.338 (7.35-7.450); ABG TOTAL HEMOGLOBIN 8.4 G/dL (12.0-18.0); PO2, ARTERIAL BG 59.8 mmHg (84.0-92.0); SOURCE, BLOOD GAS ARTERIAL; TEMPERATURE, FAHRENHEIT, BG 97.3 FAHREN (96.0-98.6)
[2019-06-07 14:17] LABS: O2 DEVICE,BLOOD GAS VENTILATOR (ROOM AIR); PEEP,BG 7 cm H2O; SITE, BLOOD GAS ARTERIAL LINE; VT, ABG 475 ml
[2019-06-07] MEDS: POTASSIUM CHLORIDE 20 MEQ in NXSTAGE RFP-402 K0/CA3 5,000 ML IRRIG PRN ×2 (14:39→20:45)
[2019-06-07] MEDS: VASOPRESSIN 40 UNITS in SODIUM CHLORIDE 0.9% 98 ML IV PRN (16:01)
[2019-06-07 16:51] LABS: ABG A-A DIFF O2 311.5 mmHg (10-20.0); ABG BASE EXCESS -3.3 mmol/L (-2.0-3.0); ABG CARBOXYHEMOGLOBIN 1.2 % (0.0-1.5); ABG HCO3 21.7 mmol/L (22.0-26.0); ABG METHEMOGLOBIN 0.3 % (0.0-1.5); ABG OXYGEN CONTENT 13.9 mL/dL (15.0-23.0); ABG OXYGEN SATURATION 93.4 % (95.0-98.0); ABG PCO2 43 mmHg (35-45); ABG PH 7.338 (7.35-7.450); ABG TOTAL HEMOGLOBIN 10.7 G/dL (12.0-18.0); PO2, ARTERIAL BG 70.3 mmHg (84.0-92.0); SOURCE, BLOOD GAS ARTERIAL; TEMPERATURE, FAHRENHEIT, BG 97.4 FAHREN (96.0-98.6)
[2019-06-07 16:54] LABS: O2 DEVICE,BLOOD GAS VENTILATOR (ROOM AIR); SITE, BLOOD GAS A LINE; VT, ABG 475 ml
[2019-06-07 16:55] LABS: PEEP,BG 10 cm H2O; SPONTANEOUS VT, BG 474 ml
[2019-06-07] MEDS: LEVOFLOXACIN 500 MG/D5% WATER 100 ML IV SCH (17:40)
[2019-06-08] VITALS: BP 105/36
[2019-06-08] MEDS: HYDROCORTISONE SOD SUCC 100 MG/2 ML VIAL IVP SCH ×5 (00:51→23:28)
[2019-06-08] MEDS: POTASSIUM CHLORIDE 20 MEQ in NXSTAGE RFP-402 K0/CA3 5,000 ML IRRIG PRN ×4 (01:04→10:55)
[2019-06-08 04:00] VITALS: BP 108/38
[2019-06-08] MEDS: SODIUM CHLORIDE 0.9% IV PRN ×2 (05:37→17:32)
[2019-06-08] MEDS: NOREPINEPHRINE BITARTRATE IV PRN ×2 (05:37→17:32)
[2019-06-08] MEDS: LEVOTHYROXINE SODIUM 25 MCG TABLET PO SCH (06:07)
[2019-06-08] MEDS: MEROPENEM 2 GM in SODIUM CHLORIDE 0.9% 100 ML IV SCH ×2 (06:07→18:01)
[2019-06-08 06:40] LABS: BASOPHILS % (AUTO) 0.4 % (0.0-2.0); EOSINOPHILS % (AUTO) 0.1 % (1.0-6.0); HEMATOCRIT 22.6 % (36-46); HEMOGLOBIN 7.5 g/dL (12.0-16.0); LYMPHOCYTES # (AUTO) 0.9 K/uL (1.0-4.8); LYMPHOCYTES % (AUTO) 6.9 % (22.0-44.0); MEAN CORPUSCULAR HEMOGLOBIN 31.7 pg (26.0-34.0); MEAN CORPUSCULAR HGB CONC 33.1 G/dL (31.0-37.0); MEAN CORPUSCULAR VOLUME 96 fL (80-100); MONOCYTES # (AUTO) 0.6 K/uL (0.1-1.0); MONOCYTES % (AUTO) 4.8 % (2.0-9.0); NEUTROPHILS # (AUTO) 11.1 K/uL (1.8-7.7); RED BLOOD CELL COUNT(AUTO) 2.36 MIL/uL (4.00-5.20); RED CELL DISTRIBUTION WIDTH 17.6 % (11.5-14.5)
[2019-06-08 06:45] LABS: NEUTROPHILS % (AUTO) 87.8 % (40.0-70.0)
[2019-06-08 07:04] LABS: ALBUMIN 2.9 g/dL (3.4-5.0); BILIRUBIN,TOTAL 10.8 mg/dL (0.1-1.0); CALCIUM, TOTAL 10.1 mg/dL (8.8-10.5); CREATININE 1.42 mg/dL (0.60-1.30); TOTAL PROTEIN, SERUM 5.7 g/dL (6.4-8.2); VANCOMYCIN,RANDOM 18.6 mcg/mL (25.0-50.0)
[2019-06-08 07:31] LABS: PLATELET COUNT (AUTO) 18 K/uL (150-450)
[2019-06-08 08:00] VITALS: BP 114/39
[2019-06-08] MEDS: LACTULOSE 20 GM/30 ML SOLUTION UDCUP PO SCH ×2 (08:26→20:47)
[2019-06-08] MEDS: PANTOPRAZOLE SODIUM 40 MG/VIAL IVP SCH ×2 (08:26→20:46)
[2019-06-08] MEDS: SULFAMETHOX/TRIMETH 800-160 MG/20 ML SUSPENSION ORAL SYRINGE NG SCH ×2 (08:35→20:46)
[2019-06-08] MEDS ORDERED: VANCOMYCIN HCL 500 MG in DEXTROSE 5%-WATER 100 ML IV ONE (10:00)
[2019-06-08] MEDS: VASOPRESSIN 40 UNITS in SODIUM CHLORIDE 0.9% 98 ML IV PRN (10:20)
[2019-06-08 12:00] VITALS: BP 117/41
[2019-06-08 16:00] VITALS: BP 105/37
[2019-06-08 20:17] VITALS: BP 109/30
[2019-06-09] VITALS (21 sets, daily range): BP systolic 95–113; BP diastolic 27–38
[2019-06-09] MEDS: POTASSIUM CHLORIDE 20 MEQ in NXSTAGE RFP-402 K0/CA3 5,000 ML IRRIG PRN ×3 (00:05→20:34)
[2019-06-09] MEDS: VASOPRESSIN 40 UNITS in SODIUM CHLORIDE 0.9% 98 ML IV PRN ×2 (00:06→17:41)
[2019-06-09] MEDS ORDERED: SODIUM CHLORIDE 0.9% 250 ML IV ONE ×3 (03:05→16:11)
[2019-06-09] MEDS ORDERED: SODIUM CHLORIDE 0.9% 500 ML IV ONE (03:05)
[2019-06-09 05:23] LABS: CALCIUM, TOTAL 9.7 mg/dL (8.8-10.5); CREATININE 1.53 mg/dL (0.60-1.30); MAGNESIUM 1.6 mg/dL (1.80-2.40); PHOSPHORUS 2.4 mg/dL (2.5-4.9); POTASSIUM 3.7 mmol/L (3.5-5.1); VANCOMYCIN,RANDOM 15.8 mcg/mL (25.0-50.0)
[2019-06-09] MEDS: SODIUM CHLORIDE 0.9% IV PRN ×2 (05:43→17:40)
[2019-06-09] MEDS: NOREPINEPHRINE BITARTRATE IV PRN ×2 (05:43→17:40)
[2019-06-09 05:51] LABS: MEAN CORPUSCULAR VOLUME 97 fL (80-100); RED BLOOD CELL COUNT(AUTO) 1.99 MIL/uL (4.00-5.20)
[2019-06-09 05:52] LABS: MEAN CORPUSCULAR HEMOGLOBIN 31.9 pg (26.0-34.0); PLATELET COUNT (AUTO) 35 K/uL (150-450); RED CELL DISTRIBUTION WIDTH 18.1 % (11.5-14.5)
[2019-06-09 06:06] LABS: HEMATOCRIT 19.3 % (36-46); HEMOGLOBIN 6.4 g/dL (12.0-16.0)
[2019-06-09 06:09] LABS: BAND NEUTROPHILS % (MANUAL) 7 % (0-5); BASOPHILS % (MANUAL) 1 % (0-2); LYMPHOCYTES % (MANUAL) 6 % (22-44); MONOCYTES % (MANUAL) 4 % (2-9); SEGMENTED NEUTROPHILS % 82 % (40-70)
[2019-06-09] MEDS: LEVOTHYROXINE SODIUM 25 MCG TABLET PO SCH (06:36)
[2019-06-09] MEDS: HYDROCORTISONE SOD SUCC 100 MG/2 ML VIAL IVP SCH ×4 (06:36→23:05)
[2019-06-09] MEDS: MEROPENEM 2 GM in SODIUM CHLORIDE 0.9% 100 ML IV SCH (06:37)
[2019-06-09] MEDS ORDERED: VANCOMYCIN HCL 750 MG in DEXTROSE 5%-WATER 250 ML IV ONE (08:00)
[2019-06-09] MEDS: EPOETIN ALFA 10,000 UNITS/ML VIAL SQ SCH (08:40)
[2019-06-09] MEDS: PANTOPRAZOLE SODIUM 40 MG/VIAL IVP SCH ×2 (08:40→20:20)
[2019-06-09] MEDS: SULFAMETHOX/TRIMETH 800-160 MG/20 ML SUSPENSION ORAL SYRINGE NG SCH (08:40)
[2019-06-09] MEDS: LACTULOSE 20 GM/30 ML SOLUTION UDCUP PO SCH ×2 (09:00→20:18)
[2019-06-09] MEDS ORDERED: *CLINICAL-BACTRIM/SEPTRA IVPB DOSING CLINICAL ONE ×2 (14:15→16:15)
[2019-06-09] MEDS ORDERED: TRIMETH IV SCH (15:15)
[2019-06-09] MEDS ORDERED: WATER IV SCH (15:15)
[2019-06-09] MEDS ORDERED: DEXTROSE IV SCH (15:15)
[2019-06-09] MEDS ORDERED: SULFAMETHOX IV SCH (15:15)
[2019-06-09] MEDS: LEVOFLOXACIN 500 MG/D5% WATER 100 ML IV SCH (17:40)
[2019-06-09] MEDS: TRIMETH IV SCH (20:18)
[2019-06-09] MEDS: WATER IV SCH (20:18)
[2019-06-09] MEDS: SULFAMETHOX IV SCH (20:18)
[2019-06-09] MEDS: DEXTROSE IV SCH (20:18)
[2019-06-09 21:25] LABS: HEMATOCRIT 23.5 % (36-46); HEMOGLOBIN 7.9 g/dL (12.0-16.0)
[2019-06-10] VITALS: BP 93/29
[2019-06-10] MEDS: DOPamine HCL 800 MG/D5%-WATER 250 ML IV PRN (00:10)
[2019-06-10] MEDS: NOREPINEPHRINE BITARTRATE IV PRN ×4 (01:25→22:01)
[2019-06-10] MEDS: SODIUM CHLORIDE 0.9% IV PRN ×4 (01:25→22:01)
[2019-06-10] MEDS ORDERED: SODIUM CHLORIDE 0.9% 250 ML IV ONE (02:15)
[2019-06-10] MEDS ORDERED: SODIUM CHLORIDE 0.9% 1,000 ML IV ONE ×2 (02:16→09:00)
[2019-06-10 03:54] LABS: HEMATOCRIT 25.1 % (36-46); HEMOGLOBIN 8.5 g/dL (12.0-16.0); MEAN CORPUSCULAR HEMOGLOBIN 31.1 pg (26.0-34.0); MEAN CORPUSCULAR VOLUME 92 fL (80-100); PLATELET COUNT (AUTO) 39 K/uL (150-450); RED BLOOD CELL COUNT(AUTO) 2.74 MIL/uL (4.00-5.20); RED CELL DISTRIBUTION WIDTH 17.5 % (11.5-14.5)
[2019-06-10 04:00] VITALS: BP 105/31
[2019-06-10 04:06] LABS: ALBUMIN 2.1 g/dL (3.4-5.0); BILIRUBIN,TOTAL 10.4 mg/dL (0.1-1.0); CALCIUM, TOTAL 9.7 mg/dL (8.8-10.5); CREATININE 1.57 mg/dL (0.60-1.30); MAGNESIUM 1.5 mg/dL (1.80-2.40); PHOSPHORUS 2.6 mg/dL (2.5-4.9); POTASSIUM 3.9 mmol/L (3.5-5.1); TOTAL PROTEIN, SERUM 4.6 g/dL (6.4-8.2); VANCOMYCIN,RANDOM 18.8 mcg/mL (25.0-50.0)
[2019-06-10 04:18] LABS: BAND NEUTROPHILS % (MANUAL) 14 % (0-5); LYMPHOCYTES % (MANUAL) 5 % (22-44); MONOCYTES % (MANUAL) 4 % (2-9); SEGMENTED NEUTROPHILS % 77 % (40-70)
[2019-06-10] MEDS: LEVOTHYROXINE SODIUM 25 MCG TABLET PO SCH (06:16)
[2019-06-10] MEDS: HYDROCORTISONE SOD SUCC 100 MG/2 ML VIAL IVP SCH ×4 (06:16→23:41)
[2019-06-10] MEDS: POTASSIUM CHLORIDE 20 MEQ in NXSTAGE RFP-402 K0/CA3 5,000 ML IRRIG PRN ×3 (06:30→17:55)
[2019-06-10 08:00] VITALS: BP 100/28
[2019-06-10] MEDS: TRIMETH IV SCH ×2 (08:00→20:10)
[2019-06-10] MEDS: SULFAMETHOX IV SCH ×2 (08:00→20:10)
[2019-06-10] MEDS: DEXTROSE IV SCH ×2 (08:00→20:10)
[2019-06-10] MEDS: WATER IV SCH ×2 (08:00→20:10)
[2019-06-10] MEDS: VASOPRESSIN 40 UNITS in SODIUM CHLORIDE 0.9% 98 ML IV PRN (08:05)
[2019-06-10] MEDS: LACTULOSE 20 GM/30 ML SOLUTION UDCUP PO SCH ×2 (09:00→20:38)
[2019-06-10] MEDS ORDERED: VANCOMYCIN HCL 500 MG in DEXTROSE 5%-WATER 100 ML IV ONE (10:00)
[2019-06-10] MEDS: PANTOPRAZOLE SODIUM 40 MG/VIAL IVP SCH ×2 (10:46→20:37)
[2019-06-10 12:00] VITALS: BP 106/36
[2019-06-10] MEDS ORDERED: MAGNESIUM SULFATE 3 GM in DEXTROSE 5%-WATER 100 ML IV ONE (13:45)
[2019-06-10] MEDS: MORPHINE SULFATE 2 MG/ML SYRINGE IVP PRN ×2 (14:18→17:18)
[2019-06-10 16:00] VITALS: BP 103/31
[2019-06-10] MEDS: ALBUMIN HUMAN 25%-25GM/100ML 100 ML IV SCH (16:55)
[2019-06-10 17:19] LABS: HEMATOCRIT 24.4 % (36-46); HEMOGLOBIN 8.1 g/dL (12.0-16.0)
[2019-06-10 20:00] VITALS: BP 115/36
[2019-06-11] VITALS (17 sets, daily range): BP systolic 89–127; BP diastolic 25–41
[2019-06-11] MEDS: MORPHINE SULFATE 2 MG/ML SYRINGE IVP PRN ×2 (01:15→07:56)
[2019-06-11] MEDS: POTASSIUM CHLORIDE 20 MEQ in NXSTAGE RFP-402 K0/CA3 5,000 ML IRRIG PRN ×5 (02:33→21:13)
[2019-06-11] MEDS: ALBUMIN HUMAN 25%-25GM/100ML 100 ML IV SCH ×2 (04:03→16:07)
[2019-06-11 05:23] LABS: MEAN CORPUSCULAR HEMOGLOBIN 31.3 pg (26.0-34.0); MEAN CORPUSCULAR HGB CONC 33.7 G/dL (31.0-37.0); MEAN CORPUSCULAR VOLUME 93 fL (80-100); RED BLOOD CELL COUNT(AUTO) 2.25 MIL/uL (4.00-5.20); RED CELL DISTRIBUTION WIDTH 17.2 % (11.5-14.5)
[2019-06-11 05:34] LABS: HEMATOCRIT 20.8 % (36-46)
[2019-06-11] MEDS: HYDROCORTISONE SOD SUCC 100 MG/2 ML VIAL IVP SCH ×4 (05:37→23:14)
[2019-06-11] MEDS: VASOPRESSIN 40 UNITS in SODIUM CHLORIDE 0.9% 98 ML IV PRN ×2 (05:37→23:14)
[2019-06-11] MEDS: LEVOTHYROXINE SODIUM 25 MCG TABLET PO SCH (05:38)
[2019-06-11] MEDS: SODIUM CHLORIDE 0.9% IV PRN ×3 (05:38→19:59)
[2019-06-11] MEDS: NOREPINEPHRINE BITARTRATE IV PRN ×3 (05:38→19:59)
[2019-06-11 05:39] LABS: ALBUMIN 2.8 g/dL (3.4-5.0); BILIRUBIN,TOTAL 11.2 mg/dL (0.1-1.0); CREATININE 1.56 mg/dL (0.60-1.30); POTASSIUM 4.1 mmol/L (3.5-5.1); TOTAL PROTEIN, SERUM 4.8 g/dL (6.4-8.2); VANCOMYCIN,RANDOM 17.2 mcg/mL (25.0-50.0)
[2019-06-11 06:35] LABS: MAGNESIUM 2.1 mg/dL (1.80-2.40)
[2019-06-11 07:08] LABS: PLATELET COUNT (AUTO) 27 K/uL (150-450)
[2019-06-11 07:50] LABS: BAND NEUTROPHILS % (MANUAL) 11 % (0-5); EOSINOPHILS % (MANUAL) 1 % (1-6); LYMPHOCYTES % (MANUAL) 9 % (22-44); MONOCYTES % (MANUAL) 5 % (2-9); SEGMENTED NEUTROPHILS % 74 % (40-70)
[2019-06-11 07:52] LABS: PLATELET MORPHOLOGY COMMENT GIANT PLTS PRESENT
[2019-06-11] MEDS: LACTULOSE 20 GM/30 ML SOLUTION UDCUP PO SCH ×2 (08:16→21:00)
[2019-06-11] MEDS: PANTOPRAZOLE SODIUM 40 MG/VIAL IVP SCH ×2 (08:16→21:13)
[2019-06-11] MEDS: DEXTROSE IV SCH ×2 (08:17→20:04)
[2019-06-11] MEDS: EPOETIN ALFA 10,000 UNITS/ML VIAL SQ SCH (08:17)
[2019-06-11] MEDS: SULFAMETHOX IV SCH ×2 (08:17→20:04)
[2019-06-11] MEDS: WATER IV SCH ×2 (08:17→20:04)
[2019-06-11] MEDS: TRIMETH IV SCH ×2 (08:17→20:04)
[2019-06-11] MEDS ORDERED: SODIUM CHLORIDE 0.9% 500 ML IV ONE (09:45)
[2019-06-11] MEDS ORDERED: VANCOMYCIN HCL 500 MG in DEXTROSE 5%-WATER 100 ML IV ONE (10:00)
[2019-06-11] MEDS: FentaNYL CITRATE PF 500 MCG in DEXTROSE 5%-WATER 90 ML IV PRN ×2 (12:15→19:59)
[2019-06-11] MEDS: LEVOFLOXACIN 500 MG/D5% WATER 100 ML IV SCH (17:05)
[2019-06-11] MEDS ORDERED: SODIUM CHLORIDE 0.9% 250 ML IV ONE (18:46)
[2019-06-11] MEDS: DOPamine HCL 800 MG/D5%-WATER 250 ML IV PRN (19:59)
[2019-06-12] VITALS (15 sets, daily range): BP systolic 55–130; BP diastolic 16–36
[2019-06-12] MEDS: POTASSIUM CHLORIDE 20 MEQ in NXSTAGE RFP-402 K0/CA3 5,000 ML IRRIG PRN (01:37)
[2019-06-12] MEDS: SODIUM CHLORIDE 0.9% IV PRN ×2 (01:38→09:36)
[2019-06-12] MEDS: NOREPINEPHRINE BITARTRATE IV PRN ×2 (01:38→09:36)
[2019-06-12] MEDS: FentaNYL CITRATE PF 500 MCG in DEXTROSE 5%-WATER 90 ML IV PRN ×2 (01:38→09:37)
[2019-06-12] MEDS: ALBUMIN HUMAN 25%-25GM/100ML 100 ML IV SCH (03:58)
[2019-06-12 05:31] LABS: MEAN CORPUSCULAR HEMOGLOBIN 30.6 pg (26.0-34.0); MEAN CORPUSCULAR HGB CONC 33.6 G/dL (31.0-37.0); MEAN CORPUSCULAR VOLUME 91 fL (80-100); RED BLOOD CELL COUNT(AUTO) 2.21 MIL/uL (4.00-5.20); RED CELL DISTRIBUTION WIDTH 16.9 % (11.5-14.5)
[2019-06-12] MEDS: HYDROCORTISONE SOD SUCC 100 MG/2 ML VIAL IVP SCH ×3 (05:39→18:00)
[2019-06-12] MEDS: LEVOTHYROXINE SODIUM 25 MCG TABLET PO SCH (05:40)
[2019-06-12 06:02] LABS: BILIRUBIN,TOTAL 10.6 mg/dL (0.1-1.0); CALCIUM, TOTAL 8.5 mg/dL (8.8-10.5); CREATININE 1.53 mg/dL (0.60-1.30); POTASSIUM 4.2 mmol/L (3.5-5.1); TOTAL PROTEIN, SERUM 4.7 g/dL (6.4-8.2); VANCOMYCIN,RANDOM 16.3 mcg/mL (25.0-50.0)
[2019-06-12 06:12] LABS: HEMATOCRIT 20.1 % (36-46); HEMOGLOBIN 6.8 g/dL (12.0-16.0); PLATELET COUNT (AUTO) 19 K/uL (150-450)
[2019-06-12 07:11] LABS: BAND NEUTROPHILS % (MANUAL) 10 % (0-5); CORRECTED WHITE BLOOD COUNT 14.6 K/uL (4.5-11.0); LYMPHOCYTES % (MANUAL) 11 % (22-44); MONOCYTES % (MANUAL) 3 % (2-9); SEGMENTED NEUTROPHILS % 76 % (40-70)
[2019-06-12] MEDS: WATER IV SCH (08:02)
[2019-06-12] MEDS: TRIMETH IV SCH (08:02)
[2019-06-12] MEDS: DEXTROSE IV SCH (08:02)
[2019-06-12] MEDS: SULFAMETHOX IV SCH (08:02)
[2019-06-12] MEDS: LACTULOSE 20 GM/30 ML SOLUTION UDCUP PO SCH (09:00)
[2019-06-12] MEDS ORDERED: VANCOMYCIN HCL 750 MG in DEXTROSE 5%-WATER 250 ML IV ONE (10:00)
[2019-06-12] MEDS: PANTOPRAZOLE SODIUM 40 MG/VIAL IVP SCH (10:23)
[2019-06-12] MEDS ORDERED: SODIUM CHLORIDE 0.9% 250 ML IV ONE (10:58)
[2019-06-12] MEDS ORDERED: SODIUM CHLORIDE 0.9% 1,000 ML IV ONE (12:08)
[2019-06-12] MEDS ORDERED: MORPHINE SULFATE 100 MG/NS/PF 100 ML IV PRN (14:15)
== END 2019-06-12 16:44 | disposition expired | DRG 720 ==
LOC: EMS 16:57 → ICU 05-26 11:58
PROVIDERS: ADMIT Hospitalist; ATTEND Hospitalist
PROC: 30233K1 Transfusion of Nonautologous Frozen Plasma into Peripheral Vein, Percutaneous Approach (ICD-10-PCS; principal; 2019-05-26)
PROC: 5A1955Z Respiratory Ventilation, Greater than 96 Consecutive Hours (ICD-10-PCS; 2019-05-26)
PROC: 0BH17EZ Insertion of Endotracheal Airway into Trachea, Via Natural or Artificial Opening (ICD-10-PCS; 2019-05-26)
PROC: 02HV33Z Insertion of Infusion Device into Superior Vena Cava, Percutaneous Approach (ICD-10-PCS; 2019-05-26)
PROC: 5A1D90Z Performance of Urinary Filtration, Continuous, Greater than 18 hours Per Day (ICD-10-PCS; 2019-05-26)
PROC: B548ZZA Ultrasonography of Superior Vena Cava, Guidance (ICD-10-PCS; 2019-05-26)
PROC: 06HY33Z Insertion of Infusion Device into Lower Vein, Percutaneous Approach (ICD-10-PCS; 2019-05-26)
PROC: 30233N1 Transfusion of Nonautologous Red Blood Cells into Peripheral Vein, Percutaneous Approach (ICD-10-PCS; 2019-05-27)
PROC: 5A1D90Z Performance of Urinary Filtration, Continuous, Greater than 18 hours Per Day (ICD-10-PCS; 2019-05-27)
PROC: 5A1D90Z Performance of Urinary Filtration, Continuous, Greater than 18 hours Per Day (ICD-10-PCS; 2019-05-28)
PROC: 5A1D90Z Performance of Urinary Filtration, Continuous, Greater than 18 hours Per Day (ICD-10-PCS; 2019-05-29)
PROC: 5A1D90Z Performance of Urinary Filtration, Continuous, Greater than 18 hours Per Day (ICD-10-PCS; 2019-05-30)
PROC: 5A1D90Z Performance of Urinary Filtration, Continuous, Greater than 18 hours Per Day (ICD-10-PCS; 2019-05-31)
PROC: 5A1D90Z Performance of Urinary Filtration, Continuous, Greater than 18 hours Per Day (ICD-10-PCS; 2019-06-01)
PROC: 5A1D90Z Performance of Urinary Filtration, Continuous, Greater than 18 hours Per Day (ICD-10-PCS; 2019-06-02)
PROC: 5A1D90Z Performance of Urinary Filtration, Continuous, Greater than 18 hours Per Day (ICD-10-PCS; 2019-06-03)
PROC: 5A1D90Z Performance of Urinary Filtration, Continuous, Greater than 18 hours Per Day (ICD-10-PCS; 2019-06-04)
PROC: 5A1D90Z Performance of Urinary Filtration, Continuous, Greater than 18 hours Per Day (ICD-10-PCS; 2019-06-05)
PROC: 5A1D90Z Performance of Urinary Filtration, Continuous, Greater than 18 hours Per Day (ICD-10-PCS; 2019-06-06)
PROC: 5A1D90Z Performance of Urinary Filtration, Continuous, Greater than 18 hours Per Day (ICD-10-PCS; 2019-06-07)
PROC: 5A1D90Z Performance of Urinary Filtration, Continuous, Greater than 18 hours Per Day (ICD-10-PCS; 2019-06-08)
PROC: 5A1D90Z Performance of Urinary Filtration, Continuous, Greater than 18 hours Per Day (ICD-10-PCS; 2019-06-09)
PROC: 5A1D90Z Performance of Urinary Filtration, Continuous, Greater than 18 hours Per Day (ICD-10-PCS; 2019-06-10)
PROC: 5A1D90Z Performance of Urinary Filtration, Continuous, Greater than 18 hours Per Day (ICD-10-PCS; 2019-06-11)
PROC: 30233R1 Transfusion of Nonautologous Platelets into Peripheral Vein, Percutaneous Approach (ICD-10-PCS; 2019-06-12)
DX: A41.2 Sepsis due to unspecified staphylococcus (principal); J96.01 Acute respiratory failure with hypoxia; R65.21 Severe sepsis with septic shock; E43 Unspecified severe protein-calorie malnutrition; Z99.11 Dependence on respirator [ventilator] status; D61.818 Other pancytopenia; E87.4 Mixed disorder of acid-base balance; J18.9 Pneumonia, unspecified organism; E87.5 Hyperkalemia; D62 Acute posthemorrhagic anemia; D68.9 Coagulation defect, unspecified; K72.90 Hepatic failure, unspecified without coma; K74.60 Unspecified cirrhosis of liver; K92.2 Gastrointestinal hemorrhage, unspecified; I70.0 Atherosclerosis of aorta; N17.9 Acute kidney failure, unspecified; J44.9 Chronic obstructive pulmonary disease, unspecified; N39.0 Urinary tract infection, site not specified; F32.9 Major depressive disorder, single episode, unspecified; M79.7 Fibromyalgia; K21.9 Gastro-esophageal reflux disease without esophagitis; F17.210 Nicotine dependence, cigarettes, uncomplicated; F10.20 Alcohol dependence, uncomplicated; Y90.9 Presence of alcohol in blood, level not specified; F11.90 Opioid use, unspecified, uncomplicated; F15.90 Other stimulant use, unspecified, uncomplicated; F20.9 Schizophrenia, unspecified; E03.9 Hypothyroidism, unspecified; Z66 Do not resuscitate; D63.8 Anemia in other chronic diseases classified elsewhere; K20.9 Esophagitis, unspecified; B96.89 Other specified bacterial agents as the cause of diseases classified elsewhere; E87.1 Hypo-osmolality and hyponatremia; E87.6 Hypokalemia; F12.10 Cannabis abuse, uncomplicated; I50.32 Chronic diastolic (congestive) heart failure; Z68.41 Body mass index [BMI] 40.0-44.9, adult; Z90.49 Acquired absence of other specified parts of digestive tract; Z90.710 Acquired absence of both cervix and uterus
CPT/HCPCS: 36600; 51702; 70450; 71250; 72192; 74150; 82271; 82570; 82805; 83540; 83550; 83605; 83735; 84100; 84300; 84439; 84443; 84481; 84540; 85014; 85018; 86738; 86850; 86870; 86900; 86901; 86905; 86922; 86927; 87040; 87070; 87081; 87086; 87205; 87324; 87340; 87449; 87899; 93005; 93306; 93926; 94002; 94003; 94640; 96365; 96375; 99291; C9113; G0378; G0480; G0481; J0171; J0330; J0456; J0610; J0696; J0885; J1265; J1720; J1815; J1956; J2185; J2270; J2354; J2370; J2543; J2704; J3010; J3370; J3475; J3480; J3490; J7030; J7040; J7042; J7050; J7060; P9016; P9017; P9035; P9046; P9047